=== PATIENT | male | born 1955 | race Caucasian/White ===

== ENCOUNTER 2021-11-06 08:45 | Inpatient (IN) ==
--- NOTE | 2021-11-06 08:57 | Emergency Department Note ---
HPI General Chief complaint: Extremity Injury, Lower Stated complaint: left hip pain/deformity Time Seen by Provider: 11/06/21 08:57 Source: patient and EMS Mode of arrival: EMS Limitations: physical limitation History of Present Illness HPI Narrative: 66-year-old male with past medical history of diabetes presenting with left hip and leg pain. He states 2 days ago he fell in his garage while getting out of a chair and landed on his left side. Denies head injury or LOC. He states since then he has had pain in his left hip and left knee. He has been able to ambulate but it is very painful. No numbness, weakness, paresthesias, headache, or back pain. Not on anticoagulation. No other complaints. Related Data Home Medications Medication Instructions Recorded Confirmed hydrocodone 7.5 mg-acetaminophen 1 tab PO Q4H PRN tab 04/22/15 11/06/21 500 mg tablet insulin glargine 100 unit/mL 5 unit SUB-Q .QAM-QPM ml 04/22/15 11/06/21 subcutaneous solution insulin lispro 100 unit/mL 25 unit SUB-Q QID ml 04/22/15 11/06/21 subcutaneous solution ibuprofen 200 mg tablet 200 mg PO PRN tab 04/18/16 11/06/21 lisinopril 20 mg tablet 40 mg PO QDAY 04/18/16 11/06/21 atorvastatin [Lipitor] 5 mg PO AC 05/20/19 11/06/21 Previous Rx's Medication Instructions Recorded hydrocodone 5 mg-acetaminophen 325 1 tab PO Q4H PRN #20 tab 10/13/21 mg tablet Allergies Allergy/AdvReac Type Severity Reaction Status Date / Time No Known Drug Allergies Allergy Verified 11/06/21 12:43 Review of Systems ROS ROS Narrative: Narrative: Constitutional: Denies fever or chills ENT ED: Denies throat pain Cardiovascular: Denies chest pain or palpitations Respiratory: Denies shortness of breath or cough Gastrointestinal: Denies abdominal pain, nausea or vomiting Genitourinary: Denies dysuria Musculoskeletal: Reports joint pain; Denies back pain Integumentary: Denies rash Neurological: Denies headache, weakness, numbness or paresthesias Psychiatric: Denies anxiety Endocrine: Denies fatigue Hematological/Lymphatic: Denies easy bleeding PFSH Narrative Patient History Narrative: Narrative: Medical/Surgical/Family History All Active Problems (Updated 11/06/21 @ 11:31 by Man Magdaleno MD) Fall (Acute) Multiple fractures of ribs of right side (Acute) Closed fracture of neck of left femur (Acute) History of surgical amputation of finger of left hand (Acute) History of tonsillectomy (Acute) H/O hand surgery (Acute) Tobacco abuse (Acute) Osteoporosis (Acute) Lumbar disc disease (Acute) Diabetes mellitus type 1 (Acute) Medical History (Updated 11/06/21 @ 11:31 by Man Magdaleno MD) Diabetes mellitus type 1 Lumbar disc disease Osteoporosis Tobacco abuse Surgical History H/O hand surgery Right History of surgical amputation of finger of left hand left 5th finger amputated History of tonsillectomy Family History Mother Depression Father Cardiac disease Social History Smoking Status: Current every day smoker Alcohol Intake Frequency: a few times a week Exam Narrative Narrative: Narrative: General Limitations: physical limitation General appearance: Present alert and in no apparent distress Head Head: Present atraumatic and normocephalic Eye Eye: Present normal appearance, PERRL and EOMI; Absent scleral icterus or conjunctival injection ENT ENT: Present mucous membranes moist Neck Neck: Present normal inspection, full ROM and trachea midline; Absent tenderness Chest Chest: Present symmetric chest wall rise Respiratory Respiratory: Present normal lung sounds bilaterally; Absent respiratory distress, wheezes, stridor, accessory muscle use or prolonged expiratory phase Cardiovascular Cardiovascular: Present regular rate and normal rhythm; Absent systolic murmur or diastolic murmur Adbominal Abdominal: Present soft; Absent distention, tenderness, guarding, rebound, rigidity or organomegaly Extremities Extremities: Present other (Tenderness to palpation over the left lateral hip and left anterior knee; mild effusion noted to the left knee; range of motion of the left hip and left knee intact but limited secondary to pain; distal sensation intact, 2+ DP pulses bilaterally); Absent pretibial edema Back Back: Present normal inspection; Absent spinous process tenderness Neurological Neurological: Present alert and oriented X3 Psychiatric Psychiatric: Present normal affect and normal mood Skin Skin: Present warm (WNL) and dry Course Consultations Consultation #1: Dr. Cooper, orthopedics Time: 10:36 Consultation #2: Dr. Sanches, hospitalist Time: 11:00 Vital Signs Vital signs: Vital Signs Temperature 97.5 F 11/06/21 08:47 Pulse Rate 96 H 11/06/21 08:47 Respiratory Rate 20 11/06/21 08:47 Blood Pressure 154/106 11/06/21 08:47 Pulse Oximetry (%) 99 11/06/21 08:47 Temperature 98.3 F 11/06/21 12:27 Pulse Rate 98 H 11/06/21 12:27 Respiratory Rate 22 11/06/21 12:27 Blood Pressure 155/96 11/06/21 12:27 Pulse Oximetry (%) 98 11/06/21 12:27 MDM MDM Narrative Medical decision making narrative: 66-year-old male presenting with left hip and left knee pain after fall. Neurologically intact, no other injuries reported. Will obtain x-rays and reevaluate. X-ray shows a left femoral neck fracture. Vital signs are stable. Patient made NPO. Patient discussed with Dr. Cooper of orthopedics and Dr. Sanches, admitting hospitalist. Lab Data Lab results reviewed: Yes I reviewed the patient's lab results. Result diagrams: 11/06/21 10:03 11/06/21 10:03 Labs: Lab Results 11/06/21 11/06/21 11/06/21 Range/Units 10:03 10:03 10:03 WBC 8.8 (4.5-11.0) K/mcL RBC 4.24 L (4.63-6.08) M/mcL Hgb 14.9 (13.7-17.5) g/dL Hct 41.9 (40.1-51.0) % MCV 98.8 (80.0-100.0) fL MCH 35.1 H (26.0-34.0) pg MCHC 35.6 (31.0-36.0) g/dL RDW 13.2 (11.5-14.5) % Plt Count 217 (140-440) K/mcL MPV 10.8 H (7.4-10.4) fL Neut % (Auto) 72.1 (38.0-78.0) % Lymph % (Auto) 14.1 L (15.5-49.0) % [place] % (Auto) 11.2 (1.0-12.0) % Eos % (Auto) 2.1 (0.0-7.0) % Baso % (Auto) 0.5 (0.0-2.0) % Lymph # (Auto) 1.24 L (1.50-4.80) K/mcL [place] # (Auto) 0.98 H (0.10-0.90) K/mcL Eos # (Auto) 0.18 (0.00-0.70) K/mcL Baso # (Auto) 0.04 (0.00-0.30) K/mcL Absolute Neutrophils 6.34 (1.80-8.00) K/mcL PT 12.0 (11.9-14.5) sec INR 0.9 (0.9-1.1) Sodium 131 L (133-145) mmol/L Potassium 3.8 (3.3-5.1) mmol/L Chloride 94 L (96-108) mmol/L Carbon Dioxide 19 L (22-30) mmol/L Anion Gap 18.0 H (8.0-16.0) BUN 10 (8-23) mg/dL Creatinine 0.5 L (0.7-1.2) mg/dL GFR Calculation 114 Glucose 263 H (70-105) mg/dL Hemoglobin A1c (4.0-6.0) % Hgb Estim Average Glucose mg/dL Calcium 8.6 (8.6-10.4) mg/dL Total Bilirubin 0.7 (0.1-1.0) mg/dL AST 20 (<40) U/L ALT 15 (<40) U/L Alkaline Phosphatase 89 (39-117) U/L Total Protein 6.3 (5.9-8.4) gm/dL Albumin 3.4 (3.2-5.2) gm/dL Globulin 2.9 (2.2-3.7) gm/dL Albumin/Globulin Ratio 1.2 (1.0-2.3) Urine Color Urine Appearance (Clear) Urine pH (5.0-9.0) Ur Specific [place] (1.000-1.035) Urine Protein (Negative) mg/dL Urine Glucose (UA) (Negative) mg/dL Urine Ketones (Negative) mg/dL Urine Occult Blood (Negative) leny/mcL Urine Nitrate (Negative) Urine Bilirubin (Negative) mg/dL Urine Urobilinogen mg/dL Ur Leukocyte Esterase (Negative) /uL Urine RBC (0-3) /hpf Urine WBC (0-4) /hpf Ur Squamous Epith Cells (0-4) /hpf Urine Bacteria (0) /hpf Hyaline Casts (0-2) /lph Urine Mucus (None) /hpf Ur Culture Indicated? 11/06/21 11/06/21 Range/Units 10:03 12:00 WBC (4.5-11.0) K/mcL RBC (4.63-6.08) M/mcL Hgb (13.7-17.5) g/dL Hct (40.1-51.0) % MCV (80.0-100.0) fL MCH (26.0-34.0) pg MCHC (31.0-36.0) g/dL RDW (11.5-14.5) % Plt Count (140-440) K/mcL MPV (7.4-10.4) fL Neut % (Auto) (38.0-78.0) % Lymph % (Auto) (15.5-49.0) % [place] % (Auto) (1.0-12.0) % Eos % (Auto) (0.0-7.0) % Baso % (Auto) (0.0-2.0) % Lymph # (Auto) (1.50-4.80) K/mcL [place] # (Auto) (0.10-0.90) K/mcL Eos # (Auto) (0.00-0.70) K/mcL Baso # (Auto) (0.00-0.30) K/mcL Absolute Neutrophils (1.80-8.00) K/mcL PT (11.9-14.5) sec INR (0.9-1.1) Sodium (133-145) mmol/L Potassium (3.3-5.1) mmol/L Chloride (96-108) mmol/L Carbon Dioxide (22-30) mmol/L Anion Gap (8.0-16.0) BUN (8-23) mg/dL Creatinine (0.7-1.2) mg/dL GFR Calculation Glucose (70-105) mg/dL Hemoglobin A1c 5.9 (4.0-6.0) % Hgb Estim Average Glucose 123 mg/dL Calcium (8.6-10.4) mg/dL Total Bilirubin (0.1-1.0) mg/dL AST (<40) U/L ALT (<40) U/L Alkaline Phosphatase (39-117) U/L Total Protein (5.9-8.4) gm/dL Albumin (3.2-5.2) gm/dL Globulin (2.2-3.7) gm/dL Albumin/Globulin Ratio (1.0-2.3) Urine Color Yellow Urine Appearance Clear (Clear) Urine pH 5.5 (5.0-9.0) Ur Specific [place] >= 1.030 (1.000-1.035) Urine Protein Trace A (Negative) mg/dL Urine Glucose (UA) 250 mg/dl A (Negative) mg/dL Urine Ketones >=160 mg/dl A (Negative) mg/dL Urine Occult Blood Trace-lysed A (Negative) leny/mcL Urine Nitrate Negative (Negative) Urine Bilirubin Negative (Negative) mg/dL Urine Urobilinogen Normal mg/dL Ur Leukocyte Esterase Negative (Negative) /uL Urine RBC 1 (0-3) /hpf Urine WBC 5 H (0-4) /hpf Ur Squamous Epith Cells 0 (0-4) /hpf Urine Bacteria None (0) /hpf Hyaline Casts 7 H (0-2) /lph Urine Mucus Mod A (None) /hpf Ur Culture Indicated? No ED POC Tests ED POC Tests: MANUEL - SARS Antigen Negative Radiology Data Radiology results reviewed: Yes I reviewed the patient's radiology results. Radiology results narrative: Ordering Physician:Man Magdaleno M.D. Date of Service:11/06/21 Procedure(s):XR chest 1V portable HISTORY: Fell, left hip fracture FINDINGS: The lungs are clear and well expanded. The heart size, pulmonary vasculature, mediastinum and baljit are normal. An old healed fracture is present posteriorly in the left eighth rib. No acute fracture is detected. IMPRESSION: Normal chest Interpreted and Authenticated by: Jens Zhang 11/06/21 2 2 [place] [place] Manager: <Electronically signed by Jens Zhang M.D. in OV> 11/06/21953 Ordering Physician:Man Magdaleno M.D. Date of Service:11/06/21 Procedure(s):XR knee LT 3V HISTORY: Fell with left knee injury FINDINGS: There are multiple overlying artifacts on the AP and oblique images. There is no evidence of fracture or dislocation. Medial joint compartment is slightly narrowed but there is no spur formation. No joint effusion is present. Moderate amount of calcified plaque is present in the popliteal artery. IMPRESSION: No fracture Interpreted and Authenticated by: Jens Zhang 11/06/21 Ordering Physician:Man Magdaleno M.D. Date of Service:11/06/21 Procedure(s):XR hip LT comp 2VW HISTORY: Fell with left hip injury Findings: there is an acute transverse fracture through the femoral neck. The shaft of the femur is retracted proximally 8 mm. There is no significant impaction or angulation. The hip joint space is normal in width and alignment and there is no underlying arthritis. The right hip is normal. No pelvic fracture is present. Moderate atherosclerotic disease is present throughout the pelvis and the upper thighs. Impression: Acute left femoral neck fracture Interpreted and Authenticated by: Jens Zhang 11/06/21 EKG Data EKG #1: EKG attestation: Yes I reviewed and interpreted this EKG. and Yes There are no EKG findings of acute coronary syndrome EKG results narrative: Normal sinus rhythm at 87 bpm. Low voltage noted. No ST elevation or depression. Interpretation: no acute changes Discharge Plan Patient/Caregiver Discharge Instructions Pt seen by [facility]NER/PA only: No Clinical Impression: Closed fracture of neck of left femur Patient Disposition: Xfer As Inpt ([facility]) Condition: Fair Discharge Date/Time: 11/06/21 12:15
--- NOTE | 2021-11-06 09:53 | XRay Report ---
HISTORY: Fell with left hip injury Findings: there is an acute transverse fracture through the femoral neck. The shaft of the femur is retracted proximally 8 mm. There is no significant impaction or angulation. The hip joint space is normal in width and alignment and there is no underlying arthritis. The right hip is normal. No pelvic fracture is present. Moderate atherosclerotic disease is present throughout the pelvis and the upper thighs. Impression: Acute left femoral neck fracture Interpreted and Authenticated by: Jens Zhang 11/06/21
--- NOTE | 2021-11-06 09:55 | XRay Report ---
HISTORY: Fell with left knee injury FINDINGS: There are multiple overlying artifacts on the AP and oblique images. There is no evidence of fracture or dislocation. Medial joint compartment is slightly narrowed but there is no spur formation. No joint effusion is present. Moderate amount of calcified plaque is present in the popliteal artery. IMPRESSION: No fracture Interpreted and Authenticated by: Jens Zhang 11/06/21
--- NOTE | 2021-11-06 09:58 | XRay Report ---
HISTORY: Fell, left hip fracture FINDINGS: The lungs are clear and well expanded. The heart size, pulmonary vasculature, mediastinum and baljit are normal. An old healed fracture is present posteriorly in the left eighth rib. No acute fracture is detected. IMPRESSION: Normal chest Interpreted and Authenticated by: Jens Zhang 11/06/21
[2021-11-06] MEDS ORDERED: morphine 4 MG/ML VIAL IV ONE ×2 (10:24→11:11)
[2021-11-06 10:39] LABS: Basophils # (Auto) 0.04 K/mcL (0.00-0.30); Basophils % (Auto) 0.5 % (0.0-2.0); Eosinophils # (Auto) 0.18 K/mcL (0.00-0.70); Eosinophils % (Auto) 2.1 % (0.0-7.0); Hematocrit 41.9 % (40.1-51.0); Hemoglobin 14.9 g/dL (13.7-17.5); Lymphocytes # (Auto) 1.24 K/mcL (1.50-4.80); Lymphocytes % (Auto) 14.1 % (15.5-49.0); Mean Cell Volume 98.8 fL (80.0-100.0); Mean Corpuscular HGB Conc 35.6 g/dL (31.0-36.0); Mean Platelet Volume 10.8 fL (7.4-10.4); Monocytes # (Auto) 0.98 K/mcL (0.10-0.90); Monocytes % (Auto) 11.2 % (1.0-12.0); Neutrophils % (Auto) 72.1 % (38.0-78.0); Platelet Count 217 K/mcL (140-440); RBC 4.24 M/mcL (4.63-6.08); Red Cell Distribution Width 13.2 % (11.5-14.5); WBC 8.8 K/mcL (4.5-11.0)
[2021-11-06 10:57] LABS: ALT/SGPT 15 U/L (<40); AST/SGOT 20 U/L (<40); Albumin 3.4 gm/dL (3.2-5.2); Albumin/Globulin Ratio 1.2 (1.0-2.3); Alkaline Phosphatase 89 U/L (39-117); Bilirubin,Total 0.7 mg/dL (0.1-1.0); Blood Urea Nitrogen 10 mg/dL (8-23); Calcium 8.6 mg/dL (8.6-10.4); Carbon Dioxide 19 mmol/L (22-30); Chloride 94 mmol/L (96-108); Globulin 2.9 gm/dL (2.2-3.7); Glomerular Filtration Rate 114; Glucose 263 mg/dL (70-105)
--- NOTE | 2021-11-06 11:15 | Internal Med History&Physical ---
HPI History of Present Illness Patient information: Note initiated : 11/06/21 at 11:12 am Service Date, if different from initiated Date: [] Patient: Mike Pink a 66 y/o M admitted on for left hip pain/deformity. Chief Complaint: [] History of present illness: Mr. Pink is a 66 year old M Who fell in his garage several days ago and been walking on it with pain that feels like he made it worse today. No other pains or complaints. Has a chronic cough. Work-up in the ED revealed left hip fracture Dr. Cooper was contacted orthopedic surgery. Review of Systems: Pertinent positive as above. Denies headache/fever/chills/nausea/vomiting/chest or abdominal pain/cough/dyspnea/diarrhea. Main 10 point review of system reviewed negative PFSH PFSH All Active Problems Fall (Acute) Multiple fractures of ribs of right side (Acute) History of surgical amputation of finger of left hand (Acute) History of tonsillectomy (Acute) H/O hand surgery (Acute) Tobacco abuse (Acute) Osteoporosis (Acute) Lumbar disc disease (Acute) Diabetes mellitus type 1 (Acute) Medical History Diabetes mellitus type 1 Lumbar disc disease Osteoporosis Tobacco abuse Surgical History H/O hand surgery Right History of surgical amputation of finger of left hand left 5th finger amputated History of tonsillectomy Family History Mother Depression Father Cardiac disease Social History (Updated 05/20/19 @ 10:57 by Daryl Nick MD) marital status: alcohol intake frequency: a few times a week MEDS/ALLERGIES Home Medications and Allergies Home Medications Medication Instructions Recorded Confirmed Type hydrocodone 7.5 mg-acetaminophen 1 tab PO Q4H PRN tab 04/22/15 11/06/21 History 500 mg tablet insulin glargine 100 unit/mL 5 unit SUB-Q .QAM-QPM ml 04/22/15 11/06/21 History subcutaneous solution insulin lispro 100 unit/mL 25 unit SUB-Q QID ml 04/22/15 11/06/21 History subcutaneous solution insulin syringe-needle U-100 0.3 04/22/15 05/20/19 History mL 31 gauge x /" ibuprofen 200 mg tablet 200 mg PO PRN tab 04/18/16 11/06/21 History lisinopril 20 mg tablet 40 mg PO QDAY 04/18/16 11/06/21 History atorvastatin [Lipitor] PO 05/20/19 05/20/19 History hydrocodone 5 mg-acetaminophen 325 1 tab PO Q4H PRN #20 tab 10/13/21 11/06/21 Rx mg tablet Allergies Allergy/AdvReac Type Severity Reaction Status Date / Time No Known Drug Allergies Allergy Verified 11/06/21 08:55 EXAM Constitutional Vitals: Temp Pulse Resp BP Pulse Ox 97.5 F 95 H 20 159/97 99 11/06/21 08:47 11/06/21 10:31 11/06/21 08:47 11/06/21 10:31 11/06/21 10:31 Exam: General: Alert, Awake, No acute Distress Eyes/N/T: EOMI, PERRL, dryMM Head/Neck: neck supple, normocephalic atraumatic CV: RRR, No murmurs, normal s1/s2 Pulm: Clear b/l, no wheezing/rhonchi/rales Abd: soft, nontender, +BS x4 Ext: no clubbing/cyanosis/edema Neuro: Alert, no focal deficits, moves all extremities, CN 2-12 grossly intact, sensations intact b/l upper/lower Skin: warm/dry DATA Data Completed and Pending Labs: Labs from last 24 hours 11/06/21 11/06/21 10:03 10:03 WBC 8.8 RBC 4.24 L Hgb 14.9 Hct 41.9 MCV 98.8 MCH 35.1 H MCHC 35.6 RDW 13.2 Plt Count 217 MPV 10.8 H Neut % (Auto) 72.1 Lymph % (Auto) 14.1 L [place] % (Auto) 11.2 Eos % (Auto) 2.1 Baso % (Auto) 0.5 Lymph # (Auto) 1.24 L [place] # (Auto) 0.98 H Eos # (Auto) 0.18 Baso # (Auto) 0.04 Absolute Neutrophils 6.34 Sodium 131 L Potassium 3.8 Chloride 94 L Carbon Dioxide 19 L Anion Gap 18.0 H BUN 10 Creatinine 0.5 L GFR Calculation 114 Glucose 263 H Calcium 8.6 Total Bilirubin 0.7 AST 20 ALT 15 Alkaline Phosphatase 89 Total Protein 6.3 Albumin 3.4 Globulin 2.9 Albumin/Globulin Ratio 1.2 A/P Narrative A/P Narrative: A: *Left hip fracture: *DM w/hyperglycemia: -A1c *HTN: *Hyponatremia/hypochloremia: *Volume depletion: P: -We have if orthopedic surgery -Pain control -IVF -Basal and SSI -Continue home lisinopril -PT/OT -ppx: SCD, postop per Ortho Full code Time Spent With Patient Time: Total time spent is greater than 50% in coordination of care (as documented) at patient's floor/unit and/or counseling patient:
[2021-11-06] MEDS ORDERED: POTASSIUM CHLORIDE 20 MEQ TABLET PO PRN ×2 (12:25)
[2021-11-06] MEDS ORDERED: 0.9 % SODIUM CHLORIDE 1,500 ML IV SCH (12:25)
[2021-11-06] MEDS ORDERED: ACETAMINOPHEN 325 MG TABLET PO PRN (12:25)
[2021-11-06] MEDS ORDERED: IPRATROPIUM/ALBUTEROL 3 ML AMPUL.NEB NEB PRN ×2 (12:25→21:56)
[2021-11-06] MEDS ORDERED: SENNOSIDES 1 TABLET PO PRN (12:25)
[2021-11-06] MEDS ORDERED: HYDROCODONE ACETAMINOPHEN PO PRN (12:25)
[2021-11-06] MEDS ORDERED: DEXTROSE 50% 50 ML VIAL IV PRN (12:25)
[2021-11-06] MEDS ORDERED: POTASSIUM CHLORIDE 40 MEQ in DEXTROSE 5% IN WATER 500 ML IV PRN (12:25)
[2021-11-06] MEDS ORDERED: DEXTROSE 31 GM ORAL.SUSP PO PRN (12:25)
[2021-11-06] MEDS ORDERED: MAGNESIUM SULFATE 2 GM/50 ML BAG IV PRN (12:25)
[2021-11-06] MEDS ORDERED: POLYETHYLENE GLYCOL 3350 17 GM PACKET PO PRN (12:25)
[2021-11-06 12:28] LABS: INR 0.9 (0.9-1.1)
[2021-11-06] MEDS ORDERED: IBUPROFEN 200 MG TABLET PO PRN (12:29)
[2021-11-06] MEDS ORDERED: HYDROCODONE/APAP 7.5/325MG TABLET PO PRN (12:30)
[2021-11-06] MEDS: INSULIN LISPRO 1 UNIT/0.01 ML UNIT SQ SCH ×4 (13:07→23:04)
[2021-11-06] MEDS: morphine 4 MG/ML VIAL IV PRN ×2 (13:08→16:19)
[2021-11-06 13:38] LABS: Hemoglobin A1C 5.9 % Hgb (4.0-6.0)
[2021-11-06] MEDS: 0.9 % SODIUM CHLORIDE 10 ML SYRINGE IV SCH ×2 (14:11→22:27)
--- NOTE | 2021-11-06 14:40 | EKG ---
[facility] Test Date: 2021-11-06 Pat Name: Mike Pink Department: ED Room: Gender: Male Inventory Checker: zack : 1955 Requested By: Man Magdaleno Order Number: [id number] Reading MD: Jeremy Zhang M.D. Measurements Intervals Elliott Rate: 87 P: 74 UT: 162 QRS: 60 QRSD: 89 T: 62 QT: 400 QTc: 482 Interpretive Statements Sinus rhythm Low voltage, extremity leads Borderline prolonged QT interval Electronically Signed On 11-06-2021 14:40:14 PST by Jeremy Zhang M.D. /store/M0/[id number].pdf
[2021-11-06 14:47] LABS: Appearance,Urine Clear (Clear); Bilirubin,Urine Negative (Negative); Color,Urine Yellow; Culture Indicated,Urine No; Ketones,Urine >=160 mg/dL mg/dL (Negative); Leukocyte Esterase,Urine Negative /uL (Negative); Mucus,Urine MOD /hpf; Nitrate,Urine Negative (Negative); PH,Urine 5.5 (5.0-9.0); Protein,Urine Trace mg/dL (Negative); Specific Gravity,Urine >= 1.030 (1.000-1.035); Urine Blood Trace-lysed ery/mcL (Negative); Urine Hyaline Cast 7 /lph (0-2); Urine RBC 1 /hpf (0-3); Urine Squamous Epithelial Cell 0 /hpf (0-4); Urine WBC 5 /hpf (0-4); Urobilinogen,Urine Normal
[2021-11-06] MEDS ORDERED: ceFAZolin 2 GM in DEXTROSE 5% IN WATER 50 ML IV SCH (15:30)
[2021-11-06] MEDS ORDERED: METHOCARBAMOL 1,000 MG/10 ML VIAL IV PRN ×2 (16:05→21:56)
[2021-11-06] MEDS ORDERED: PHENYLephrine 1 MG/10 ML SYRINGE (ANEST) ONE (19:14)
[2021-11-06] MEDS ORDERED: ROPIVACAINE HCL/PF 20 ML VIAL IJ ONE (19:14)
[2021-11-06] MEDS ORDERED: MIDAZOLAM 2 MG/2 ML VIAL ONE (19:14)
[2021-11-06] MEDS ORDERED: fentaNYL 100 MCG/2 ML VIAL IV ONE (19:14)
[2021-11-06] MEDS ORDERED: LIDOCAINE HCL/PF 100 MG/5 ML SYRINGE IV ONE (19:14)
[2021-11-06] MEDS ORDERED: GLYCOPYRROLATE 0.2 MG/ML VIAL IV ONE (19:14)
[2021-11-06] MEDS ORDERED: MAGNESIUM SULFATE 2 GM/50 ML BAG IV ONE (19:14)
[2021-11-06] MEDS ORDERED: PROPOFOL 200 MG/20 ML VIAL IV ONE (19:14)
[2021-11-06] MEDS ORDERED: KETAMINE 50 MG/ML Syringe (ANEST) IV ONE (19:14)
[2021-11-06] MEDS ORDERED: DEXAMETHASONE 10 MG/ML VIAL ONE (19:14)
[2021-11-06] MEDS ORDERED: TRANEXAMIC ACID 1,000 MG/10 ML VIAL ONE (19:14)
[2021-11-06] MEDS ORDERED: ONDANSETRON 4 MG/2 ML VIAL ONE (19:14)
--- NOTE | 2021-11-06 20:43 | History and Physical Report ---
DATE OF ADMISSION: 11/06/2021 CHIEF COMPLAINT: Left hip pain. HISTORY OF PRESENT ILLNESS: The patient is a 66-year-old male, who on Saturday reports fell in garage resulting in pain in his hip; however, he was able to ambulate minimally. However, this morning he had significant increase of pain, he felt a pop, and unable to ambulate. He was brought to the emergency department for further evaluation and treatment via EMS. He was found to have a femoral neck fracture. On presentation, he only complains of left hip pain and inability to ambulate. He denies any paraesthesias or other concerns that he has. PAST MEDICAL HISTORY: Significant for history of diabetes type 1 with hemoglobin A1c of 7 or less for the last several years. He does use tobacco, but stopped about a week ago. PAST SURGICAL HISTORY: Right hand surgery for amputation of left small finger. He has had tonsillectomy. ALLERGIES: No known drug allergies. MEDICATIONS: Insulin, lisinopril, Lipitor. SOCIAL HISTORY: He resides by himself, but has family close by and they reside locally. As mentioned above, he has stopped tobacco use approximately 1 week ago, but has been using tobacco up to that point. . REVIEW OF SYSTEMS: Other than that mentioned in the HPI, the 10-point review of systems negative. PHYSICAL EXAMINATION: VITAL SIGNS: He is afebrile. Temp of 98.3, heart rate in the 90s, blood pressure 155/106, O2 sat 98% on room air. GENERAL: He is alert, oriented, interactive, and appropriate. EXTREMITIES: Exam reveal isolated injury to his left lower extremity. He has normal rotation of the hip itself. It does not appear externally rotated or significantly shortened. Range of motion deferred about the hip given the known fracture. Also, no joint effusion about the knee itself. He does have some vascular changes about the leg portion of his lower extremities itself with some discoloration throughout, but the foot is warm and well perfused, and the patient is grossly intact throughout. IMAGING: He has plain radiographs demonstrating a displaced femoral neck fracture on left side. LABORATORY DATA: His A1c today is of 5.9. Sodium is 131, creatinine is 0.5, glucose 263. CBC of 8.8 white count and H and H is 14.9/41.9. UA appears to be negative for any UTI. ASSESSMENT AND PLAN: This is a 66-year-old male with diabetes and history of smoking with a left displaced femoral neck fracture. I discussed the diagnosis with him and treatment options. Given the displaced nature, I do think either a royal or total hip arthroplasty would be of best interest. There is risk associated with both. With the royal, he has a lower dislocation rate; but likely given his age and level of function, will potentially need a revision to total hip. I discussed the total hip arthroplasty which also is an option, but can lead to a bit higher rate of hip dislocation. Both can can be associated with leg length discrepancy and rotation deformity. I discussed all these with him, he understands. He is okay to proceed with surgery. After further discussion on how to proceed, he wants to proceed with total hip arthroplasty, which I think is the best option for him. Discussed what this entails and typically I will do this in the anterior approach. He understands and questions were answered. He does have a baseline increased risk of postoperative complication of the wound healing and infection secondary to diabetes and smoking history. However, these are minimized as his A1c is less than 6, and the smoking is non-mitigable risk factor at this point. Otherwise, he will be admitted, nonweightbearing with the surgical plan for later on today. DLW:carl Job ID: [id number] Doc ID: [id number] MD MALGORZATA Monae
[2021-11-06] MEDS ORDERED: VANCOMYCIN 1 GM VIAL TOPICAL SCH (21:15)
--- NOTE | 2021-11-06 21:16 | Brief Operative Note ---
Brief Operative Note Date of procedure: 11/06/21 Pre-op diagnosis: left displaced femoral neck fracture Post-op diagnosis: same Procedure: left anterior total hip arthroplasty Grafts/Implants: Yes Anesthesia: GETA and spinal Findings: mild underlying arthritis, displaced femoral neck fracture Complications: none Surgeon: Monty Cooper Compressor Repairer: Adal Martines Estimated blood loss (cc): 100 Tourniquet Time (Minutes): 0 Specimens Removed/Pathology: none sent Condition: stable Disposition: PACU
[2021-11-06] MEDS ORDERED: METHOCARBAMOL 750 MG TABLET PO PRN (21:19)
[2021-11-06] MEDS ORDERED: BENZOCAINE/MENTHOL 1 LOZENGE PO PRN ×2 (21:19→21:56)
[2021-11-06] MEDS ORDERED: TRANEXAMIC ACID 1,000 MG/10 ML VIAL IV ONE (21:19)
[2021-11-06] MEDS ORDERED: KETOROLAC 30 MG/ML VIAL IV PRN (21:23)
[2021-11-06] MEDS ORDERED: LACTATED RINGERS 1,000 ML IV SCH ×2 (21:30→22:00)
[2021-11-06] MEDS ORDERED: NALOXONE HCL 0.4 MG/ML VIAL IV PRN (21:56)
[2021-11-06] MEDS ORDERED: FLUMAZENIL 0.1 MG/ML ML IV PRN (21:56)
[2021-11-06] MEDS ORDERED: ACETAMINOPHEN 1,000 MG/100 ML BAG IV ONE (21:56)
[2021-11-06] MEDS ORDERED: LACTATED RINGERS 250 ML IV PRN (21:56)
[2021-11-06] MEDS ORDERED: ONDANSETRON 4 MG/2 ML VIAL IV PRN (21:56)
[2021-11-06] MEDS ORDERED: fentaNYL 100 MCG/2 ML VIAL IV PRN (21:56)
[2021-11-06] MEDS: INSULIN GLARGINE, HUMAN 1 UNIT/0.01 ML SQ SCH ×2 (22:26→23:05)
[2021-11-06] MEDS ORDERED: ceFAZolin 1 GM VIAL ONE ×2 (22:42→22:44)
[2021-11-06] MEDS: ceFAZolin 1 GM VIAL IV SCH (22:45)
[2021-11-06] MEDS: ACETAMINOPHEN 500 MG TABLET PO SCH (22:46)
[2021-11-06] MEDS: DOCUSATE SODIUM 100 MG CAPSULE PO SCH (22:47)
[2021-11-06] MEDS: ACETAMINOPHEN 1,000 MG/100 ML BAG IV SCH (22:49)
[2021-11-07] MEDS: ACETAMINOPHEN 1,000 MG/100 ML BAG IV SCH ×4 (05:14→21:17)
[2021-11-07] MEDS: ACETAMINOPHEN 500 MG TABLET PO SCH ×3 (05:14→21:09)
[2021-11-07] MEDS: ceFAZolin 1 GM VIAL IV SCH (05:17)
[2021-11-07] MEDS: 0.9 % SODIUM CHLORIDE 10 ML SYRINGE IV SCH ×3 (05:29→21:10)
[2021-11-07] MEDS: INSULIN LISPRO 1 UNIT/0.01 ML UNIT SQ SCH ×6 (06:02→23:42)
--- NOTE | 2021-11-07 06:24 | Orthopedic Progress Note ---
SUBJECTIVE Subjective Patient information: Note initiated : 11/07/21 at 6:17 am Service Date, if different from initiated Date: [] Patient: Mike Pink 66 y/o M admitted on 11/06/21 for left hip pain/deformity. Chief Complaint: [no acute events overnight. pain controlled. Does have a bit of nausea at times. No shortness of breath] Constitutional Vitals: Vital Signs Temp Pulse Resp BP Pulse Ox 97 F 99 H 17 123/76 97 11/07/21 03:51 11/07/21 03:51 11/07/21 03:51 11/07/21 03:51 11/07/21 03:51 Period Temp Pulse Resp BP Sys/Valle Pulse Ox Last 24 Hr 97 F-99.2 F 91-122 14-22 111-173/61-106 97-100 Intake and Output 11/06/21 11/07/21 11/07/21 21:59 05:59 13:59 Intake Total 2450 4000 Output Total 450 1125 Balance 1999 2875 Weight 154 lb 1.6 oz Intake & Output: Intake & Output 11/06/21 11/07/21 11/07/21 21:59 05:59 13:59 Intake Total 2450 4000 Output Total 450 1125 Balance 2000 2875 Weight 154 lb 1.6 oz Intake: IV 50 1600 Sodium Chloride 0.9% 1,500 ml @ 1500 150 mls/hr IV .Q10H [facility] Rx#: [id number] Ancef 2 gm In Dextrose 5% in 50 Water 50 ml @ 100 mls/hr IV PREOP [facility] Rx#:[id number] Oral 200 IV - Manual Only 2400 2200 Output: Urine Catheter Amount 450 1025 Estimated Blood Loss 100 Other: Meal Tuna salad/crackers Percent of Meal Consumed 100% Feeding Ability Independent Urine Appearance Clear Clear Urine Color Dark Yellow Bright Yellow Urine Odor Normal Additional findings Additional findings: general: alert and oriented appropriate left hip: dry dressing in place without strikethrough. foot warm well perfused, sensation to light touch grossly intact, able to perform straight leg raise, move ankle up and down. OBJ DATA Labs CBC & Chem 7: 11/06/21 10:03 11/06/21 10:03 Labs: Abnormal Lab Results 11/06/21 11/06/21 11/06/21 12:00 10:03 10:03 RBC 4.24 L MCH 35.1 H MPV 10.8 H Lymph % (Auto) 14.1 L Lymph # (Auto) 1.24 L [place] # (Auto) 0.98 H Sodium 131 L Chloride 94 L Carbon Dioxide 19 L Anion Gap 18.0 H Creatinine 0.5 L Glucose 263 H Urine Protein Trace A Urine Glucose (UA) 250 mg/dl A Urine Ketones >=160 mg/dl A Urine Occult Blood Trace-lysed A Urine WBC 5 H Hyaline Casts 7 H Urine Mucus Mod A Meds: Medications Acetaminophen (Acetaminophen 325 Mg Tablet) 650 mg PO Q6HP PRN; Protocol PRN Reason: Per Pain Protocol/Fever > 101 Acetaminophen (Acetaminophen 500 Mg Tablet) 1,000 mg PO Q8 [facility]; Protocol Last Admin: 11/07/21 05:14 Dose: Not Given Documented by: Hydrocodone Bitart/Acetaminophen (Hydrocodone/Apap 7.5/325mg Tablet) 1 tab PO Q4HP PRN; Protocol PRN Reason: Per Pain Protocol Last Admin: 11/07/21 03:57 Dose: 1 tab Documented by: Albuterol/Ipratropium (Ipratropium/Albuterol 3 Ml Ampul.Neb) 3 ml NEB Q4HP PRN PRN Reason: Shortness Of Breath Dextrose (Dextrose 50% 50 Ml Vial) 0 ml IV UD PRN PRN Reason: Hypoglycemia Diagnostic Test (Pha) (Accu-Chek 1 Each Strip) 1 each FS ACHS [facility] Last Admin: 11/07/21 06:02 Dose: 1 each Documented by: Docusate Sodium (Docusate Sodium 100 Mg Capsule) 100 mg PO BID [facility] Last Admin: 11/06/21 22:47 Dose: 100 mg Documented by: Enoxaparin Sodium (Enoxaparin 40 Mg/0.4 Ml Syringe) 40 mg SQ DAILY [facility] Glucose (Dextrose 31 Gm Oral.Susp) 15 gm PO PRN PRN PRN Reason: Hypoglycemia Potassium Chloride 40 meq/ (Dextrose) 520 mls @ 130 mls/hr IV UD PRN PRN Reason: Potassium < 3 Magnesium Sulfate (Magnesium Sulfate) 2 gm in 50 mls @ 50 mls/hr IV UD PRN PRN Reason: Magnesium </= 1.6 Acetaminophen (Ofirmev) 1,000 mg in 100 mls @ 200 mls/hr IV Q8 [facility]; Protocol Last Admin: 11/07/21 05:23 Dose: 100 mls/hr Documented by: Lactated Ringer's (Lactated Ringers) 1,000 mls @ 75 mls/hr IV .[id number] [facility] Last Admin: 11/06/21 22:46 Dose: Not Given Documented by: Ibuprofen (Ibuprofen 200 Mg Tablet) 200 mg PO DAILYP PRN PRN Reason: Pain Insulin Glargine (Insulin Glargine, Human 1 Unit/0.01 Ml) 5 unit SQ BID [facility] Last Admin: 11/06/21 23:05 Dose: 5 units Documented by: Insulin Human Lispro (Insulin Lispro 1 Unit/0.01 Ml Unit) 0 unit SQ [facility]; Protocol Last Admin: 11/07/21 06:02 Dose: 10 units Documented by: Ketorolac Tromethamine (Ketorolac 30 Mg/Ml Vial) 15 mg IV Q6HP PRN PRN Reason: Pain Stop: 11/08/21 21:24 Lisinopril (Lisinopril 20 Mg Tablet) 40 mg PO QDAY [facility] Methocarbamol (Methocarbamol 1,000 Mg/10 Ml Vial) 750 mg IV Q6HP PRN PRN Reason: Muscle Spasm Methocarbamol (Methocarbamol 750 Mg Tablet) 500 mg PO Q6HP PRN PRN Reason: Muscle Spasm Ondansetron HCl (Ondansetron 4 Mg/2 Ml Vial) 4 mg IV Q4HP PRN PRN Reason: Nausea And Vomiting Oxycodone HCl (Oxycodone Hcl 5 Mg Tablet) 5 - 10 mg PO Q4HP PRN; Protocol PRN Reason: Per Pain Protocol Polyethylene Glycol (Polyethylene Glycol 3350 17 Gm Packet) 17 gm PO DAILYP PRN PRN Reason: Constipation Potassium Chloride (Potassium Chloride 20 Meq Tablet) 40 meq PO UD PRN PRN Reason: Potssium is 3-3.5 Potassium Chloride (Potassium Chloride 20 Meq Tablet) 40 meq PO UD PRN PRN Reason: Potassium < 3 Senna (Sennosides 1 Tablet) 2 tab PO DAILYP PRN PRN Reason: Constipation Sodium Chloride (0.9 % Sodium Chloride 10 Ml Syringe) 10 ml IV Q8 [facility] Last Admin: 11/07/21 05:29 Dose: 10 ml Documented by: Throat Lozenges (Benzocaine/Menthol 1 Lozenge) 1 lozenge PO PRN PRN PRN Reason: Sore Throat Vancomycin HCl (Vancomycin 1 Gm Vial) 1 gm TOPICAL ONCE [facility]; Protocol Last Admin: 11/06/21 21:07 Dose: 1 gm Documented by: A/P Assessment and plan (1) Closed fracture of neck of left femur: Assessment and plan: POD 1 s/p left anterior total hip arthroplasty for displaced femoral neck fracture -- weight bearing as tolerated- PT/OT today -- d/c salvador this AM -- Transition to oral pain medications today -- diabetic diet- glucose a bit high on sliding scale -- Tachycardia- reviewed chart which has history of tachy with ER visit in Dec timeframe but reports at home typically in the 80's. -- Prophy: lovenox, IS, foot pumps, mobilization -- Dispo: pending. will see how he does with therapy. Lives alone, did place consult for case management Status: Acute Time Spent With Patient Time: Total time spent is greater than 50% in coordination of care (as documented) at patient's floor/unit and/or counseling patient:
[2021-11-07 07:42] LABS: Basophils # (Auto) 0.01 K/mcL (0.00-0.30); Basophils % (Auto) 0.1 % (0.0-2.0); Eosinophils # (Auto) 0 K/mcL (0.00-0.70); Eosinophils % (Auto) 0 % (0.0-7.0); Hematocrit 36.6 % (40.1-51.0); Hemoglobin 12.9 g/dL (13.7-17.5); Lymphocytes # (Auto) 0.62 K/mcL (1.50-4.80); Lymphocytes % (Auto) 5.6 % (15.5-49.0); Mean Cell Volume 101.4 fL (80.0-100.0); Mean Corpuscular HGB Conc 35.2 g/dL (31.0-36.0); Mean Platelet Volume 10.7 fL (7.4-10.4); Monocytes # (Auto) 0.53 K/mcL (0.10-0.90); Monocytes % (Auto) 4.8 % (1.0-12.0); Neutrophils % (Auto) 89.5 % (38.0-78.0); Platelet Count 239 K/mcL (140-440); RBC 3.61 M/mcL (4.63-6.08); Red Cell Distribution Width 13.2 % (11.5-14.5)
--- NOTE | 2021-11-07 07:55 | Internal Med Progress Note ---
SUBJECTIVE Subjective Patient information: Note initiated : 11/07/21 at 7:52 am Service Date, if different from initiated Date: [] Patient: Mike Pink a 66 y/o M admitted on 11/06/21 for left hip pain/deformity. Chief Complaint: [] Interval history: Chief Complaint: [] History of present illness: Mr. Pink is a 66 year old M Who fell in his garage several days ago and been walking on it with pain that feels like he made it worse today. No other pains or complaints. Has a chronic cough. Work-up in the ED revealed left hip fracture Dr. Cooper was contacted orthopedic surgery. 11/07 No new complaints overnight events. Patient status post ORIF. Review of Systems: denies headache/fever/chills/nausea/vomiting/chest or abdominal pain /cough/dyspnea/diarrhea. Otherwise see above. Constitutional Vitals: Vital Signs Temp Pulse Resp BP Pulse Ox 97 F 99 H 17 123/76 97 11/07/21 03:51 11/07/21 03:51 11/07/21 03:51 11/07/21 03:51 11/07/21 03:51 Period Temp Pulse Resp BP Sys/Valle Pulse Ox Last 24 Hr 97 F-99.2 F 91-122 14-22 111-173/61-106 97-100 Intake and Output 11/06/21 11/07/21 11/07/21 21:59 05:59 13:59 Intake Total 2450 4000 100 Output Total 450 1125 Balance 2000 2875 100 Weight 69.899 kg Intake & Output: Intake & Output 11/06/21 11/07/21 11/07/21 21:59 05:59 13:59 Intake Total 2450 4000 100 Output Total 450 1125 Balance 2000 2875 100 Weight 69.899 kg Intake: IV 50 1600 100 Sodium Chloride 0.9% 1,500 ml @ 1500 150 mls/hr IV .Q10H [facility] Rx#: [id number] Ancef 2 gm In Dextrose 5% in 50 Water 50 ml @ 100 mls/hr IV PREOP [facility] Rx#:[id number] Oral 200 IV - Manual Only 2400 2200 Output: Urine Catheter Amount 450 1025 Estimated Blood Loss 100 Other: Meal Tuna salad/crackers Percent of Meal Consumed 100% Feeding Ability Independent Urine Appearance Clear Clear Uretheral (Song) Clear Urine Color Dark Yellow Bright Yellow Uretheral (Song) Pale Urine Odor Normal Exam: General: Alert, Awake, No acute Distress Eyes/N/T: EOMI, Head/Neck: neck supple, CV: RRR, No murmurs, Pulm: Clear b/l, no wheezing/rhonchi/rales Abd: soft, nontender, +BS x4 Ext: no clubbing/cyanosis/edema Neuro: Alert, no focal deficits, moves all extremities, OBJ DATA Labs CBC & Chem 7: 11/07/21 05:07 11/07/21 05:07 Labs: Abnormal Lab Results 11/07/21 11/06/21 11/06/21 05:07 12:00 10:03 RBC 3.61 L Hgb 12.9 L Hct 36.6 L MCV 101.4 H MCH 35.7 H MPV 10.7 H Neut % (Auto) 89.5 H Lymph % (Auto) 5.6 L Lymph # (Auto) 0.62 L [place] # (Auto) Absolute Neutrophils 9.84 H Sodium 131 L Chloride 94 L Carbon Dioxide 19 L Anion Gap 18.0 H Creatinine 0.5 L Glucose 263 H Urine Protein Trace A Urine Glucose (UA) 250 mg/dl A Urine Ketones >=160 mg/dl A Urine Occult Blood Trace-lysed A Urine WBC 5 H Hyaline Casts 7 H Urine Mucus Mod A 11/06/21 10:03 RBC 4.24 L Hgb Hct MCV MCH 35.1 H MPV 10.8 H Neut % (Auto) Lymph % (Auto) 14.1 L Lymph # (Auto) 1.24 L [place] # (Auto) 0.98 H Absolute Neutrophils Sodium Chloride Carbon Dioxide Anion Gap Creatinine Glucose Urine Protein Urine Glucose (UA) Urine Ketones Urine Occult Blood Urine WBC Hyaline Casts Urine Mucus Meds: Medications Acetaminophen (Acetaminophen 325 Mg Tablet) 650 mg PO Q6HP PRN; Protocol PRN Reason: Per Pain Protocol/Fever > 101 Acetaminophen (Acetaminophen 500 Mg Tablet) 1,000 mg PO Q8 [facility]; Protocol Last Admin: 11/07/21 05:14 Dose: Not Given Documented by: Hydrocodone Bitart/Acetaminophen (Hydrocodone/Apap 7.5/325mg Tablet) 1 tab PO Q4HP PRN; Protocol PRN Reason: Per Pain Protocol Last Admin: 11/07/21 03:57 Dose: 1 tab Documented by: Albuterol/Ipratropium (Ipratropium/Albuterol 3 Ml Ampul.Neb) 3 ml NEB Q4HP PRN PRN Reason: Shortness Of Breath Dextrose (Dextrose 50% 50 Ml Vial) 0 ml IV UD PRN PRN Reason: Hypoglycemia Diagnostic Test (Pha) (Accu-Chek 1 Each Strip) 1 each FS [facility] Last Admin: 11/07/21 06:02 Dose: 1 each Documented by: Docusate Sodium (Docusate Sodium 100 Mg Capsule) 100 mg PO BID [facility] Last Admin: 11/06/21 22:47 Dose: 100 mg Documented by: Enoxaparin Sodium (Enoxaparin 40 Mg/0.4 Ml Syringe) 40 mg SQ DAILY [facility] Glucose (Dextrose 31 Gm Oral.Susp) 15 gm PO PRN PRN PRN Reason: Hypoglycemia Potassium Chloride 40 meq/ (Dextrose) 520 mls @ 130 mls/hr IV UD PRN PRN Reason: Potassium < 3 Magnesium Sulfate (Magnesium Sulfate) 2 gm in 50 mls @ 50 mls/hr IV UD PRN PRN Reason: Magnesium </= 1.6 Acetaminophen (Ofirmev) 1,000 mg in 100 mls @ 200 mls/hr IV Q8 [facility]; Protocol Last Infusion: 11/07/21 07:01 Dose: Infused Documented by: Lactated Ringer's (Lactated Ringers) 1,000 mls @ 75 mls/hr IV .[id number] [facility] Last Admin: 11/06/21 22:46 Dose: Not Given Documented by: Ibuprofen (Ibuprofen 200 Mg Tablet) 200 mg PO DAILYP PRN PRN Reason: Pain Insulin Glargine (Insulin Glargine, Human 1 Unit/0.01 Ml) 5 unit SQ BID [facility] Last Admin: 11/06/21 23:05 Dose: 5 units Documented by: Insulin Human Lispro (Insulin Lispro 1 Unit/0.01 Ml Unit) 0 unit SQ [facility]; Protocol Last Admin: 11/07/21 06:02 Dose: 10 units Documented by: Ketorolac Tromethamine (Ketorolac 30 Mg/Ml Vial) 15 mg IV Q6HP PRN PRN Reason: Pain Stop: 11/08/21 21:24 Lisinopril (Lisinopril 20 Mg Tablet) 40 mg PO QDAY [facility] Methocarbamol (Methocarbamol 1,000 Mg/10 Ml Vial) 750 mg IV Q6HP PRN PRN Reason: Muscle Spasm Methocarbamol (Methocarbamol 750 Mg Tablet) 500 mg PO Q6HP PRN PRN Reason: Muscle Spasm Ondansetron HCl (Ondansetron 4 Mg/2 Ml Vial) 4 mg IV Q4HP PRN PRN Reason: Nausea And Vomiting Oxycodone HCl (Oxycodone Hcl 5 Mg Tablet) 5 - 10 mg PO Q4HP PRN; Protocol PRN Reason: Per Pain Protocol Polyethylene Glycol (Polyethylene Glycol 3350 17 Gm Packet) 17 gm PO DAILYP PRN PRN Reason: Constipation Potassium Chloride (Potassium Chloride 20 Meq Tablet) 40 meq PO UD PRN PRN Reason: Potssium is 3-3.5 Potassium Chloride (Potassium Chloride 20 Meq Tablet) 40 meq PO UD PRN PRN Reason: Potassium < 3 Senna (Sennosides 1 Tablet) 2 tab PO DAILYP PRN PRN Reason: Constipation Sodium Chloride (0.9 % Sodium Chloride 10 Ml Syringe) 10 ml IV Q8 [facility] Last Admin: 11/07/21 05:29 Dose: 10 ml Documented by: Throat Lozenges (Benzocaine/Menthol 1 Lozenge) 1 lozenge PO PRN PRN PRN Reason: Sore Throat A/P Narrative A/P Narrative: A: *Left hip fracture: s/p ORIF (11/06) *DM w/hyperglycemia: -A1c 5.9 *HTN: *Hyponatremia/hypochloremia: *Volume depletion: improved P: -Cooper orthopedic surgery -Pain control -home insulin regimen -Continue home lisinopril -PT/OT -ppx: SCD, postop per Ortho lovenox Full code Time Spent With Patient Time: Total time spent is greater than 50% in coordination of care (as documented) at patient's floor/unit and/or counseling patient: QUALITY Stroke Symptom Onset Unknown: No VTE Deep Vein Thrombosis/Pulmonary Embolism Present on Admission: No
--- NOTE | 2021-11-07 08:01 | XRay Report ---
HISTORY: Postop left hip replacement for fracture. Findings: there is a well-positioned left total hip prosthesis. No new fracture has developed. There are calcified plaques in the left iliac and femoral arteries. IMPRESSION: Well-positioned left hip prosthesis Interpreted and Authenticated by: Jens Zhang 11/07/21
[2021-11-07 08:09] LABS: ALT/SGPT 15 U/L (<40); AST/SGOT 20 U/L (<40); Albumin 2.9 gm/dL (3.2-5.2); Albumin/Globulin Ratio 1.2 (1.0-2.3); Alkaline Phosphatase 82 U/L (39-117); Bilirubin,Direct < 0.2 mg/dL (0-0.3); Bilirubin,Total 0.3 mg/dL (0.1-1.0); Blood Urea Nitrogen 9 mg/dL (8-23); Calcium 7.9 mg/dL (8.6-10.4); Carbon Dioxide 14 mmol/L (22-30); Chloride 92 mmol/L (96-108); Globulin 2.5 gm/dL (2.2-3.7); Glomerular Filtration Rate 100; Glucose 325 mg/dL (70-105); Lactate Dehydrogenase 271 U/L (135-225); Phosphorous 2.6 mg/dL (2.5-4.5); Triglycerides 113 mg/dL (<150); Uric Acid 3.2 mg/dL (2.5-8.0)
[2021-11-07] MEDS ORDERED: SODIUM CHLORIDE 1 GM TABLET PO ONE (08:43)
[2021-11-07] MEDS ORDERED: INSULIN LISPRO 1 UNIT/0.01 ML UNIT SQ SCH ×2 (09:00→11:30)
--- NOTE | 2021-11-07 09:26 | XRay Report ---
HISTORY: FINDINGS: IMPRESSION: 0.6 minutes of fluoroscopy time was used. Interpreted and Authenticated by: Jens Zhang 11/07/21
[2021-11-07] MEDS: ONDANSETRON 4 MG/2 ML VIAL IV PRN ×2 (10:33→19:28)
[2021-11-07] MEDS: ENOXAPARIN 40 MG/0.4 ML SYRINGE SQ SCH (10:42)
[2021-11-07] MEDS: DOCUSATE SODIUM 100 MG CAPSULE PO SCH ×2 (10:42→19:19)
[2021-11-07] MEDS: ATORVASTATIN 10 MG TABLET PO SCH (10:42)
[2021-11-07] MEDS: LISINOPRIL 20 MG TABLET PO SCH (10:43)
[2021-11-07] MEDS: SODIUM BICARBONATE 650 MG TABLET PO SCH ×3 (10:43→19:19)
[2021-11-07] MEDS: INSULIN GLARGINE, HUMAN 1 UNIT/0.01 ML SQ SCH ×2 (10:43→19:13)
[2021-11-07] MEDS: oxyCODONE HCL 5 MG TABLET PO PRN ×3 (10:44→19:20)
--- NOTE | 2021-11-07 11:23 | Operative Note ---
DATE OF OPERATION: 11/06/2021 PREOPERATIVE DIAGNOSIS: Left displaced femoral neck fracture. POSTOPERATIVE DIAGNOSIS: Left displaced femoral neck fracture. PROCEDURE PERFORMED: Left anterior total hip arthroplasty. SURGEON: Monty Cooper M.D. SENIOR BIOINFORMATICS SCIENTIST: Yadiel Martines PA-C. The PA's assistance was required for the safe and efficient completion of the entire case. This provider's expertise and technical skill were required throughout the case. The PA assisted with preoperative coordination, intraoperative retraction, wound closure, dressing and splint application, as well as postoperative documentation and care coordination. ANESTHESIA: General with spinal. INTRAVENOUS FLUIDS: 2200 mL lactated Ringer's. ESTIMATED BLOOD LOSS: 100 mL. ANTIBIOTICS: 2 grams Ancef. INTRAOPERATIVE COMPLICATIONS: None apparent. PATHOLOGY/LAB: None; however, disposed of the femoral head and neck portion which looked nonpathologic. IMPLANTS: Actis size 10 stem high offset with a +1.5 ceramic 36mm head, a Avinger 56 mm shell with a neutral liner. INDICATIONS FOR PROCEDURE: The patient is a 66-year-old diabetic male who sustained a fall, now approximately 2 to 3 days ago, but subsequently was able to ambulate minimally until this morning when he felt a pop and inability to ambulate additionally. He presented to the emergency department for evaluation and found to have a displaced femoral neck fracture. I discussed this with him at length. He has mild underlying arthritis of his hip joints and discussed options to include hip hemiarthroplasty versus total hip arthroplasty, risks and benefits of each procedure and each procedure, which he understands. After discussion, he wants to proceed with total hip arthroplasty. DESCRIPTION OF PROCEDURE: Patient was met in the preoperative holding area where site was verified and marked with the patient's input. He was taken back to the operating room where he underwent spinal and then general anesthesia. He was placed on the [place] table with a padded perineal post and padded boots in place. Radiographs were taken of the AP pelvis as well as the operative and nonoperative hip itself. These were used for templating. At this point, the left hip was prepped and draped in the usual sterile fashion with ChloraPrep. Surgical timeout was performed to verify patient's identity, correct procedure being performed, and correct extremity being operated on. Everybody was in agreement. I created approximately an 8 cm incision two fingerbreadths distal to the ASIS and two fingerbreadths lateral. Skin was sharply incised. Hemostasis was obtained and blunt dissection was taken down to the fascia overlying the tensor fascia. The anterior and posterior pockets were created. IrriSept was utilized throughout the case. We placed our self-retaining retractor at this time. The fascia was incised. The tensor muscle was dissected off bluntly of the fascia at the interval between the sartorius itself and dissected to the saddle of the greater trochanter. A blunt, lighted Cobra retractor was placed over top of this and over the anterior neck and additional blunt Cobra retractor was placed. The interval was further developed and the circumflex vessels were identified and these were coagulated and incised and hemostasis was obtained. The fat pad over top of the capsule was removed as well. I placed a bent Hohmann retractor over the top of the acetabulum to further expose the capsule. Inverted T-capsulotomy was then made and a Cobra retractor was placed inside of this and the fracture was identified. At this point, we replaced the medial Cobra retractor with a radiolucent Cobra retractor and brought in the large C-arm to make our femoral neck cut, which templated on the contralateral side approximately a 20 to 22 mm neck cut. This was then bovied and then cut with an oscillating saw. This was removed and then the head ball was removed with a corkscrew device as well. The Cobra retractor was placed along the anterior acetabulum, posterior acetabulum, and over the superior rim of the acetabulum to further expose the acetabulum. Labrum was sharply excised with a sharp 10 blade. The fovea was cleaned of all soft tissue as well. Then, under large fluoroscopy guidance reamed to the medial wall and upsized the reamer until we got to a size 55, which did appear to fill the acetabulum which had nice cortical bleeding bone circumferentially. This was pulse irrigated and then our shell was placed and impacted with good press fit. I did place one screw just for security. Once this was placed, the liner was placed and ensured that it was impacted and seated. Once this was complete, we focused our attention to expose the femur. We placed a Hope retractor along the femoral neck and released the inferior medial posterior capsule and then released the capsule over to the saddle and created an incision through the capsule laterally to get our sharp retractor over top of the greater trochanter. This was at the interval where the fat pad was visualized to ensure we did not compromise any of the abbuctor tendon. With this exposed, the leg was then extended, externally rotated and adducted, which allowed the femoral neck into view. The posterior capsule was released as well further exposing thefemur. Utilizing a box maker, canal finder, pigtail rasp and a broach, we sized up to a size 10, which did fill the canal with good rotational stability. We placed our high offset neck and a 1.5 head and reduced the joint as was templated. With doing this, we restored our anatomy to the contralateral side nearly symmetric to include the offset and the length. Given that, I was happy with the overall template and the trials. These were then removed and was irrigated. Our final stem was implanted along with our ceramic head, which was a head ball 36 mm ceramic head and the joint was reduced, and again radiographs were taken and overall appeared to be in good overall alignment. At this point, the wound was copiously irrigated again with IrriSept throughout the whole case, as well as at this point 0.35% Betadine solution and let it set for 3 minutes and then pulse lavaged this out. The capsule was closed with #2 Ethibond and we placed vancomycin powder deep in this wound. The tensor fascia was closed with 2-0 Vicryl in running fashion, irrigated out this area again and then placed the remaining vancomycin powder in this level. The subcutaneous fat layer was closed with 2-0 Vicryl as well as a running 3-0 Monocryl, mariela and Steris with a silver dressing applied. The patient was then awoken from anesthesia and transferred to PACU in stable condition. POSTOPERATIVE PLAN: The patient will be admitted back to the floor and work with physical therapy and depending on progress, will likely disposition to home. DESTIN:brittny Job ID: [id number] Doc ID: [id number] [facility]
[2021-11-08] MEDS: oxyCODONE HCL 5 MG TABLET PO PRN ×5 (03:13→23:55)
[2021-11-08] MEDS: INSULIN LISPRO 1 UNIT/0.01 ML UNIT SQ SCH ×6 (04:15→23:48)
[2021-11-08] MEDS: ACETAMINOPHEN 1,000 MG/100 ML BAG IV SCH ×3 (04:15→20:16)
[2021-11-08] MEDS: 0.9 % SODIUM CHLORIDE 10 ML SYRINGE IV SCH ×4 (04:16→20:16)
[2021-11-08] MEDS: ACETAMINOPHEN 500 MG TABLET PO SCH ×3 (04:16→20:15)
--- NOTE | 2021-11-08 07:51 | Internal Med Progress Note ---
SUBJECTIVE Subjective Patient information: Note initiated : 11/08/21 at 7:49 am Service Date, if different from initiated Date: [] Patient: Mike Pink a 66 y/o M admitted on 11/06/21 for left hip pain/deformity. Chief Complaint: [] Interval history: Chief Complaint: [] History of present illness: Mr. Pink is a 66 year old M Who fell in his garage several days ago and been walking on it with pain that feels like he made it worse today. No other pains or complaints. Has a chronic cough. Work-up in the ED revealed left hip fracture Dr. Cooper was contacted orthopedic surgery. 11/07 No new complaints overnight events. Patient status post ORIF. 11/08 No overnight event or new complaints. Other than poor sleep. Review of Systems: denies headache/fever/chills/nausea/vomiting/chest or abdominal pain/cough/dyspnea/diarrhea. Otherwise see above. Constitutional Vitals: Vital Signs Temp Pulse Resp BP Pulse Ox 97.3 F 93 H 18 127/73 96 11/08/21 03:35 11/08/21 03:35 11/08/21 03:35 11/08/21 03:35 11/08/21 03:35 Period Temp Pulse Resp BP Sys/Valle Pulse Ox Last 24 Hr 97.3 F-98.3 F 91-107 12-20 117-141/69-79 96-100 Intake and Output 11/07/21 11/08/21 11/08/21 21:59 05:59 13:59 Intake Total 600 100 Output Total 150 350 Balance 450 -250 Weight 71.804 kg Intake & Output: Intake & Output 11/07/21 11/08/21 11/08/21 21:59 05:59 13:59 Intake Total 600 100 Output Total 150 350 Balance 450 -250 Weight 71.804 kg Intake: IV 100 100 Oral 500 Output: Void Amount 150 350 Other: Meal Dinner Percent of Meal Consumed 50% Feeding Ability Independent Urine Appearance Clear Urine Color Bright Yellow Urine Odor Strong Exam: General: Alert, Awake, No acute Distress Eyes/N/T: EOMI, Head/Neck: neck supple, CV: RRR, No murmurs, Pulm: Clear b/l, no wheezing/rhonchi/rales Abd: soft, nontender, +BS x4 Ext: no clubbing/cyanosis/edema Neuro: Alert, no focal deficits, moves all extremities, OBJ DATA Labs CBC & Chem 7: 11/07/21 05:07 11/08/21 05:15 Labs: Abnormal Lab Results 11/07/21 11/07/21 11/06/21 05:07 05:07 12:00 RBC 3.61 L Hgb 12.9 L Hct 36.6 L MCV 101.4 H MCH 35.7 H MPV 10.7 H Neut % (Auto) 89.5 H Lymph % (Auto) 5.6 L Lymph # (Auto) 0.62 L [place] # (Auto) Absolute Neutrophils 9.84 H Sodium 128 L Chloride 92 L Carbon Dioxide 14 L Anion Gap 22.0 H Creatinine Glucose 325 H Calcium 7.9 L GGT 245 H Lactate Dehydrogenase 271 H Total Protein 5.4 L Albumin 2.9 L Urine Protein Trace A Urine Glucose (UA) 250 mg/dl A Urine Ketones >=160 mg/dl A Urine Occult Blood Trace-lysed A Urine WBC 5 H Hyaline Casts 7 H Urine Mucus Mod A 11/06/21 11/06/21 10:03 10:03 RBC 4.24 L Hgb Hct MCV MCH 35.1 H MPV 10.8 H Neut % (Auto) Lymph % (Auto) 14.1 L Lymph # (Auto) 1.24 L [place] # (Auto) 0.98 H Absolute Neutrophils Sodium 131 L Chloride 94 L Carbon Dioxide 19 L Anion Gap 18.0 H Creatinine 0.5 L Glucose 263 H Calcium GGT Lactate Dehydrogenase Total Protein Albumin Urine Protein Urine Glucose (UA) Urine Ketones Urine Occult Blood Urine WBC Hyaline Casts Urine Mucus Meds: Medications Acetaminophen (Acetaminophen 325 Mg Tablet) 650 mg PO Q6HP PRN; Protocol PRN Reason: Per Pain Protocol/Fever > 101 Acetaminophen (Acetaminophen 500 Mg Tablet) 1,000 mg PO Q8 [place]; Protocol Last Admin: 11/08/21 04:16 Dose: Not Given Documented by: Hydrocodone Bitart/Acetaminophen (Hydrocodone/Apap 7.5/325mg Tablet) 1 tab PO Q4HP PRN; Protocol PRN Reason: Per Pain Protocol Last Admin: 11/07/21 03:57 Dose: 1 tab Documented by: Albuterol/Ipratropium (Ipratropium/Albuterol 3 Ml Ampul.Neb) 3 ml NEB Q4HP PRN PRN Reason: Shortness Of Breath Atorvastatin Calcium (Atorvastatin 10 Mg Tablet) 5 mg PO DAILY [facility] Last Admin: 11/07/21 10:42 Dose: 5 mg Documented by: Dextrose (Dextrose 50% 50 Ml Vial) 0 ml IV UD PRN PRN Reason: Hypoglycemia Diagnostic Test (Pha) (Accu-Chek 1 Each Strip) 1 each FS Q4 [facility] Last Admin: 11/08/21 03:37 Dose: 1 each Documented by: Docusate Sodium (Docusate Sodium 100 Mg Capsule) 100 mg PO BID [facility] Last Admin: 11/07/21 19:19 Dose: 100 mg Documented by: Enoxaparin Sodium (Enoxaparin 40 Mg/0.4 Ml Syringe) 40 mg SQ DAILY [facility] Last Admin: 11/07/21 10:42 Dose: 40 mg Documented by: Glucose (Dextrose 31 Gm Oral.Susp) 15 gm PO PRN PRN PRN Reason: Hypoglycemia Potassium Chloride 40 meq/ (Dextrose) 520 mls @ 130 mls/hr IV UD PRN PRN Reason: Potassium < 3 Magnesium Sulfate (Magnesium Sulfate) 2 gm in 50 mls @ 50 mls/hr IV UD PRN PRN Reason: Magnesium </= 1.6 Acetaminophen (Ofirmev) 1,000 mg in 100 mls @ 200 mls/hr IV Q8 [facility]; Protocol Last Infusion: 11/08/21 05:15 Dose: Infused Documented by: Ibuprofen (Ibuprofen 200 Mg Tablet) 200 mg PO DAILYP PRN PRN Reason: Pain Last Admin: 11/07/21 09:30 Dose: 200 mg Documented by: Insulin Glargine (Insulin Glargine, Human 1 Unit/0.01 Ml) 5 unit SQ BID [facility] Last Admin: 11/07/21 19:13 Dose: Not Given Documented by: Insulin Human Lispro (Insulin Lispro 1 Unit/0.01 Ml Unit) 0 unit SQ Q4H [facility]; Protocol Last Admin: 11/08/21 04:15 Dose: Not Given Documented by: Ketorolac Tromethamine (Ketorolac 30 Mg/Ml Vial) 15 mg IV Q6HP PRN PRN Reason: Pain Stop: 11/08/21 21:24 Last Admin: 11/07/21 13:07 Dose: 15 mg Documented by: Lisinopril (Lisinopril 20 Mg Tablet) 40 mg PO QDAY [facility] Last Admin: 11/07/21 10:43 Dose: 40 mg Documented by: Methocarbamol (Methocarbamol 1,000 Mg/10 Ml Vial) 750 mg IV Q6HP PRN PRN Reason: Muscle Spasm Last Admin: 11/07/21 15:38 Dose: 750 mg Documented by: Methocarbamol (Methocarbamol 750 Mg Tablet) 500 mg PO Q6HP PRN PRN Reason: Muscle Spasm Last Admin: 11/08/21 03:14 Dose: 500 mg Documented by: Ondansetron HCl (Ondansetron 4 Mg/2 Ml Vial) 4 mg IV Q4HP PRN PRN Reason: Nausea And Vomiting Last Admin: 11/07/21 19:28 Dose: 4 mg Documented by: Oxycodone HCl (Oxycodone Hcl 5 Mg Tablet) 5 - 10 mg PO Q4HP PRN; Protocol PRN Reason: Per Pain Protocol Last Admin: 11/08/21 03:13 Dose: 5 mg Documented by: Polyethylene Glycol (Polyethylene Glycol 3350 17 Gm Packet) 17 gm PO DAILYP PRN PRN Reason: Constipation Potassium Chloride (Potassium Chloride 20 Meq Tablet) 40 meq PO UD PRN PRN Reason: Potssium is 3-3.5 Potassium Chloride (Potassium Chloride 20 Meq Tablet) 40 meq PO UD PRN PRN Reason: Potassium < 3 Senna (Sennosides 1 Tablet) 2 tab PO DAILYP PRN PRN Reason: Constipation Sodium Chloride (0.9 % Sodium Chloride 10 Ml Syringe) 10 ml IV Q8 [facility] Last Admin: 11/08/21 04:16 Dose: 10 ml Documented by: Throat Lozenges (Benzocaine/Menthol 1 Lozenge) 1 lozenge PO PRN PRN PRN Reason: Sore Throat A/P Narrative A/P Narrative: A: *Left hip fracture: s/p ORIF (11/06) *DM w/hyperglycemia: -A1c 5.9 *HTN: *Hyponatremia/hypochloremia: *Volume depletion: improved P: -Cooper orthopedic surgery -Pain control -home insulin regimen -Continue home lisinopril -PT/OT -ppx: SCD, postop per Ortho lovenox Full code Time Spent With Patient Time: Total time spent is greater than 50% in coordination of care (as documented) at patient's floor/unit and/or counseling patient: QUALITY Stroke Symptom Onset Unknown: No VTE Deep Vein Thrombosis/Pulmonary Embolism Present on Admission: No
--- NOTE | 2021-11-08 07:57 | Orthopedic Progress Note ---
SUBJECTIVE Subjective Patient information: Note initiated : 11/08/21 at 7:54 am Service Date, if different from initiated Date: [] Patient: Mike Pink 66 y/o M admitted on 11/06/21 for left hip pain/deformity. Chief Complaint: Pt reports significant pain. mild to moderate bleeding from wound. Principal diagnosis: L hip fx with JULISA. Constitutional Vitals: Vital Signs Temp Pulse Resp BP Pulse Ox 97.3 F 93 H 18 127/73 96 11/08/21 03:35 11/08/21 03:35 11/08/21 03:35 11/08/21 03:35 11/08/21 03:35 Period Temp Pulse Resp BP Sys/Valle Pulse Ox Last 24 Hr 97.3 F-98.3 F 91-107 12-20 117-141/69-79 96-100 Intake and Output 11/07/21 11/08/21 11/08/21 21:59 05:59 13:59 Intake Total 600 100 Output Total 150 350 Balance 450 -250 Weight 158 lb 4.8 oz Intake & Output: Intake & Output 11/07/21 11/08/21 11/08/21 21:59 05:59 13:59 Intake Total 600 100 Output Total 150 350 Balance 450 -250 Weight 158 lb 4.8 oz Intake: IV 100 100 Oral 500 Output: Void Amount 150 350 Other: Meal Dinner Percent of Meal Consumed 50% Feeding Ability Independent Urine Appearance Clear Urine Color Bright Yellow Urine Odor Strong Skin Skin exam: Present dry and warm Additional comments: Bandage changed this morning. clean and dry now. NVI-distal OBJ DATA Labs CBC & Chem 7: 11/07/21 05:07 11/07/21 05:07 Labs: Abnormal Lab Results 11/07/21 11/07/21 11/06/21 05:07 05:07 12:00 RBC 3.61 L Hgb 12.9 L Hct 36.6 L MCV 101.4 H MCH 35.7 H MPV 10.7 H Neut % (Auto) 89.5 H Lymph % (Auto) 5.6 L Lymph # (Auto) 0.62 L [place] # (Auto) Absolute Neutrophils 9.84 H Sodium 128 L Chloride 92 L Carbon Dioxide 14 L Anion Gap 22.0 H Creatinine Glucose 325 H Calcium 7.9 L GGT 245 H Lactate Dehydrogenase 271 H Total Protein 5.4 L Albumin 2.9 L Urine Protein Trace A Urine Glucose (UA) 250 mg/dl A Urine Ketones >=160 mg/dl A Urine Occult Blood Trace-lysed A Urine WBC 5 H Hyaline Casts 7 H Urine Mucus Mod A 11/06/21 11/06/21 10:03 10:03 RBC 4.24 L Hgb Hct MCV MCH 35.1 H MPV 10.8 H Neut % (Auto) Lymph % (Auto) 14.1 L Lymph # (Auto) 1.24 L [place] # (Auto) 0.98 H Absolute Neutrophils Sodium 131 L Chloride 94 L Carbon Dioxide 19 L Anion Gap 18.0 H Creatinine 0.5 L Glucose 263 H Calcium GGT Lactate Dehydrogenase Total Protein Albumin Urine Protein Urine Glucose (UA) Urine Ketones Urine Occult Blood Urine WBC Hyaline Casts Urine Mucus Meds: Medications Acetaminophen (Acetaminophen 325 Mg Tablet) 650 mg PO Q6HP PRN; Protocol PRN Reason: Per Pain Protocol/Fever > 101 Acetaminophen (Acetaminophen 500 Mg Tablet) 1,000 mg PO Q8 [facility]; Protocol Last Admin: 11/08/21 04:16 Dose: Not Given Documented by: Hydrocodone Bitart/Acetaminophen (Hydrocodone/Apap 7.5/325mg Tablet) 1 tab PO Q4HP PRN; Protocol PRN Reason: Per Pain Protocol Last Admin: 11/07/21 03:57 Dose: 1 tab Documented by: Albuterol/Ipratropium (Ipratropium/Albuterol 3 Ml Ampul.Neb) 3 ml NEB Q4HP PRN PRN Reason: Shortness Of Breath Atorvastatin Calcium (Atorvastatin 10 Mg Tablet) 5 mg PO DAILY [facility] Last Admin: 11/07/21 10:42 Dose: 5 mg Documented by: Dextrose (Dextrose 50% 50 Ml Vial) 0 ml IV UD PRN PRN Reason: Hypoglycemia Diagnostic Test (Pha) (Accu-Chek 1 Each Strip) 1 each FS Q4 [facility] Last Admin: 11/08/21 03:37 Dose: 1 each Documented by: Docusate Sodium (Docusate Sodium 100 Mg Capsule) 100 mg PO BID [facility] Last Admin: 11/07/21 19:19 Dose: 100 mg Documented by: Enoxaparin Sodium (Enoxaparin 40 Mg/0.4 Ml Syringe) 40 mg SQ DAILY [facility] Last Admin: 11/07/21 10:42 Dose: 40 mg Documented by: Glucose (Dextrose 31 Gm Oral.Susp) 15 gm PO PRN PRN PRN Reason: Hypoglycemia Potassium Chloride 40 meq/ (Dextrose) 520 mls @ 130 mls/hr IV UD PRN PRN Reason: Potassium < 3 Magnesium Sulfate (Magnesium Sulfate) 2 gm in 50 mls @ 50 mls/hr IV UD PRN PRN Reason: Magnesium </= 1.6 Acetaminophen (Ofirmev) 1,000 mg in 100 mls @ 200 mls/hr IV Q8 [facility]; Protocol Last Infusion: 11/08/21 05:15 Dose: Infused Documented by: Ibuprofen (Ibuprofen 200 Mg Tablet) 200 mg PO DAILYP PRN PRN Reason: Pain Last Admin: 11/07/21 09:30 Dose: 200 mg Documented by: Insulin Glargine (Insulin Glargine, Human 1 Unit/0.01 Ml) 5 unit SQ BID [facility] Last Admin: 11/07/21 19:13 Dose: Not Given Documented by: Insulin Human Lispro (Insulin Lispro 1 Unit/0.01 Ml Unit) 0 unit SQ Q4H [facility]; Protocol Last Admin: 11/08/21 04:15 Dose: Not Given Documented by: Ketorolac Tromethamine (Ketorolac 30 Mg/Ml Vial) 15 mg IV Q6HP PRN PRN Reason: Pain Stop: 11/08/21 21:24 Last Admin: 11/07/21 13:07 Dose: 15 mg Documented by: Lisinopril (Lisinopril 20 Mg Tablet) 40 mg PO QDAY [facility] Last Admin: 11/07/21 10:43 Dose: 40 mg Documented by: Methocarbamol (Methocarbamol 1,000 Mg/10 Ml Vial) 750 mg IV Q6HP PRN PRN Reason: Muscle Spasm Last Admin: 11/07/21 15:38 Dose: 750 mg Documented by: Methocarbamol (Methocarbamol 750 Mg Tablet) 500 mg PO Q6HP PRN PRN Reason: Muscle Spasm Last Admin: 11/08/21 03:14 Dose: 500 mg Documented by: Ondansetron HCl (Ondansetron 4 Mg/2 Ml Vial) 4 mg IV Q4HP PRN PRN Reason: Nausea And Vomiting Last Admin: 11/07/21 19:28 Dose: 4 mg Documented by: Oxycodone HCl (Oxycodone Hcl 5 Mg Tablet) 5 - 10 mg PO Q4HP PRN; Protocol PRN Reason: Per Pain Protocol Last Admin: 11/08/21 03:13 Dose: 5 mg Documented by: Polyethylene Glycol (Polyethylene Glycol 3350 17 Gm Packet) 17 gm PO DAILYP PRN PRN Reason: Constipation Potassium Chloride (Potassium Chloride 20 Meq Tablet) 40 meq PO UD PRN PRN Reason: Potssium is 3-3.5 Potassium Chloride (Potassium Chloride 20 Meq Tablet) 40 meq PO UD PRN PRN Reason: Potassium < 3 Senna (Sennosides 1 Tablet) 2 tab PO DAILYP PRN PRN Reason: Constipation Sodium Chloride (0.9 % Sodium Chloride 10 Ml Syringe) 10 ml IV Q8 [facility] Last Admin: 11/08/21 04:16 Dose: 10 ml Documented by: Throat Lozenges (Benzocaine/Menthol 1 Lozenge) 1 lozenge PO PRN PRN PRN Reason: Sore Throat A/P Narrative A/P Narrative: 2 day s/p L JULISA for femoral neck fx -stable Cont medical management per hospitalist. will discuss possible block with anesethesia. Time Spent With Patient Time: Total time spent is greater than 50% in coordination of care (as documented) at patient's floor/unit and/or counseling patient:
[2021-11-08 08:16] LABS: Blood Urea Nitrogen 8 mg/dL (8-23); Calcium 8.2 mg/dL (8.6-10.4); Carbon Dioxide 23 mmol/L (22-30); Chloride 96 mmol/L (96-108); Glomerular Filtration Rate 114; Glucose 101 mg/dL (70-105)
[2021-11-08] MEDS: ONDANSETRON 4 MG/2 ML VIAL IV PRN (08:25)
[2021-11-08] MEDS ORDERED: POTASSIUM CHLORIDE 20 MEQ TABLET PO ONE (08:36)
--- NOTE | 2021-11-08 08:50 | General Surgery Progress Note ---
Surgical - Auxillary Note - Subjective Patient Information: Note initiated : 11/08/21 at 8:43 am Service Date, if different from initiated Date: [] Patient: Mike Pink 66 y/o M admitted on 11/06/21 for left hip pain/deformity. Chief Complaint: [POD2 pain, anesthesia perioperative pain management consult chart reviewed, VSS patient seen/examined demonstrates good stability and ROM, NVI. ROM does not cause inordinate pain dressing dry/intact underlying diabetic neuropathy complicating clinical presentation extensive discussion with pt RE PNB and risks/benefits. I am not convinced that pt experiencing pain pattern that would be helped by a PNB *(SEUN), pt agreed to continue PO pain meds and participate with PT today and then I will be back to reassess. Also discussed with staff PT, pt poorly motivated and has low tolerance threshold ] DANIEL
[2021-11-08] MEDS: ATORVASTATIN 10 MG TABLET PO SCH (09:19)
[2021-11-08] MEDS: INSULIN GLARGINE, HUMAN 1 UNIT/0.01 ML SQ SCH ×2 (09:19→20:15)
[2021-11-08] MEDS: LISINOPRIL 20 MG TABLET PO SCH (09:20)
[2021-11-08] MEDS: DOCUSATE SODIUM 100 MG CAPSULE PO SCH ×2 (09:20→20:16)
[2021-11-08] MEDS: ENOXAPARIN 40 MG/0.4 ML SYRINGE SQ SCH (09:20)
[2021-11-08] MEDS ORDERED: METHOCARBAMOL 750 MG TABLET PO PRN (13:25)
--- NOTE | 2021-11-08 15:42 | Discharge Summary ---
Discharge Provider Provider Patient information: Note initiated : 11/08/21 at 3:41 pm Service Date, if different from initiated Date: [] Patient: Mike Pink 66 y/o M admitted on 11/06/21 for left hip pain/deformity. Chief Complaint: [] Date of admission: 11/06/21 12:15 Discharge date: 11/09/21 Primary care physician: Barbara Cartagena Consults: 11/06/21 Consult to Physician [CONS] Stat Comment: Consulting Provider: Monty Cooper Reason For Exam: Physician to Consult 11/06/21 10:52 Consult to Physician [CONS] Stat Comment: Consulting Provider: Colt Sanches Reason For Exam: Physician to Consult Discharge Meds Discharge Medications Home Medications insulin glargine 100 unit/mL subcutaneous solution 25 unit SUB-Q QAM ml 04/22/15 [History Confirmed 11/07/21 Last Taken Unknown] insulin lispro 100 unit/mL subcutaneous solution See Protocol SUB-Q ACHS ml 04/22/15 [History Confirmed 11/07/21 Last Taken Unknown] ibuprofen 200 mg tablet 200 mg PO PRN tab 04/18/16 [History Confirmed 11/06/21 Last Taken Unknown] lisinopril 20 mg tablet 40 mg PO QDAY 04/18/16 [History Confirmed 11/06/21 Last Taken Unknown] atorvastatin [Lipitor] 5 mg PO QAM 05/20/19 [History Confirmed 11/07/21 Last Taken 2 Days Ago ~11/05/21] acetaminophen 500 mg tablet 1,000 mg PO Q8 #90 tab 11/07/21 [Rx Last Taken Unknown] amlodipine 5 mg tablet 5 mg PO DAILY 11/07/21 [History Confirmed 11/07/21 Last Taken 1 Day Ago ~11/06/21] docusate sodium 100 mg capsule 100 mg PO BID #60 cap 11/07/21 [Rx Last Taken Unknown] enoxaparin 40 mg/0.4 mL subcutaneous syringe (Lovenox) 40 mg (0.4 mL) SQ DAILY #29 ml 11/07/21 [Rx Last Taken Unknown] methocarbamol 750 mg tablet 500 mg PO Q6HP PRN #20 tab 11/07/21 [Rx Last Taken Unknown] oxycodone 5 mg tablet 5 - 10 mg PO Q4HP PRN #60 tab 11/07/21 [Rx Last Taken Unknown] polyethylene glycol 3350 17 gram oral powder packet (HealthyLax) 17 gm PO DAILYP PRN 20 Days ea 11/07/21 [Rx Last Taken Unknown] aspirin 81 mg chewable tablet 81 mg CHEWED BID #56 tab 11/09/21 [Rx Last Taken Unknown] COURSE Hospital Course Hospital course: History of present illness: Mr. Pink is a 66 year old M Who fell in his garage several days ago and been walking on it with pain that feels like he made it worse today. No other pains or complaints. Has a chronic cough. Work-up in the ED revealed left hip fracture Dr. Cooper was contacted orthopedic surgery. 11/07 No new complaints overnight events. Patient status post ORIF. 11/08 No overnight event or new complaints. Other than poor sleep 11/09 Discharge to assisted facility. A: *Left hip fracture: s/p ORIF (11/06) *DM w/hyperglycemia: *HTN: *Volume depletion: improved Discharge diagnosis: Left hip fracture diabetes hypertension volume depletion Time Spent with Patient Time attestation: Total time spent providing and/or coordinating discharge services: Time spent: Greater than 30 minutes EXAM Constitutional Vitals: Temp Pulse Resp BP Pulse Ox 98.2 F 99 H 18 135/77 97 11/08/21 08:00 11/08/21 08:00 11/08/21 08:00 11/08/21 08:00 11/08/21 08:00 Discharge Data Data Completed and Pending Labs on day of discharge: Labs from last 24 hours 11/08/21 05:15 Sodium 133 Potassium 3.0 L Chloride 96 Carbon Dioxide 23 Anion Gap 14.0 BUN 8 Creatinine 0.5 L GFR Calculation 114 Glucose 101 Calcium 8.2 L Discharge Plan Patient/Caregiver Discharge Instructions Activity: ambulate only with your walker and increase activity as tolerated Diet: Consistent Carbohydrate Instructions: Total Hip Replacement (DC) Activity Restrictions/Additional Instructions: -weight bearing as tolerated- use a walker or crutches as needed. -A silver dressing on your hip however do not get this wet until after your follow up appointment. -Start physical therapy this as soon as possible. Until then, work on tigh tening and relaxing your thigh muscles. Tighten your thigh muscles and lift your leg. Work on moving your ankle up and down. Work on bending your knee to 90 degrees. Tighten and relax your butt muscles. Walk about once an hour while awake. -Ice your hip for 20 minutes every 3-4 hours throughout the day. -Aspirin twice daily is to help prevent blood clots- use this for 30 days. -Tylenol is to help with the pain, take this scheduled every 8 hours even if you do not have significant pain. -Oxycodone is the narcotic pain medication which to be taken as needed. Meaning only take it if the other pain medications are not sufficient in controlling your pain. -Robaxin is a muscle relaxer that can help with the pain as well. -Docusate/miralax help prevent constipation while taking the narcotics. This discharge packet is provided to you to help keep you informed about your care. We want to ensure you get everything you need when you go home. You will also be receiving a call from us in a few days to follow up with you and see how you are doing since your discharge. This gives us a chance to listen to any concerns you maybe experiencing since you were discharged or any additional needs you may have, as well as providing us feedback on your care experience. We strive to always provide excellent care and thank you for your feedback and for choosing [facility]. Prescriptions: New polyethylene glycol 3350 [HealthyLax] 17 gram Powder In Packet 17 gm PO DAILYP PRN (Reason: Constipation) 20 Days 0RF acetaminophen 500 mg Tablet 1,000 mg PO Q8 Qty: 90 0RF methocarbamol 750 mg Tablet 500 mg PO Q6HP PRN (Reason: Muscle Spasm) Qty: 20 0RF docusate sodium 100 mg Capsule 100 mg PO BID Qty: 60 0RF oxycodone 5 mg Tablet 5 - 10 mg PO Q4HP PRN (Reason: Per Pain Protocol) Qty: 60 0RF enoxaparin [Lovenox] 40 mg/0.4 mL Syringe 40 mg SQ DAILY Qty: 29 0RF aspirin 81 mg Tablet,Chewable 81 mg CHEWED BID Qty: 56 0RF Continued insulin glargine 100 unit/mL solution 25 unit SUB-Q QAM 0RF Label Comments: Inject 10 units subcutaneously every morning, and 10 units every evening insulin lispro 100 unit/mL solution See Protocol unit SUB-Q ACHS 0RF Protocol: Insulin Sliding Scale, Low Condition: HUMALOG/NOVALOG SC SLIDING Dose/Route: SCALE Condition: FSBS < 70 Dose/Route: Give 4 Oz juice, or 15gm oral Instruction: Glucose, or 25ml D50W IV if Dose/Route: unable to take PO. Recheck in Instruction: 15 min and repeat if FSBS < 70 Condition: FSBS 71-140 Dose/Route: NO COVERAGE Condition: FSBS 141-170 Dose/Route: 1 UNITS Condition: FSBS 171-200 Dose/Route: 2 UNITS Condition: FSBS 201-250 Dose/Route: 3 UNITS Condition: FSBS 251-300 Dose/Route: 4 UNITS Condition: FSBS 301-350 Dose/Route: 6 UNITS Condition: FSBS 351-400 Dose/Route: 8 UNITS Condition: FSBS > 400 Dose/Route: 10 UNITS; REPEAT Q2H X2 Instruction: CONTINUE FOLLOWING SLIDING Condition: SCALE; IF STILL > 400; CALL Dose/Route: PHYSICIAN Label Comments: Inject up to 25 units with each meal per sliding scale Rx Instructions: pt uses a sliding scale at home amlodipine 5 mg tablet 5 mg PO DAILY 0RF lisinopril 20 mg tablet 40 mg PO QDAY 0RF ibuprofen 200 mg tablet 200 mg PO PRN 0RF atorvastatin 5 mg PO QAM 0RF Label Comments: States has been out of this medication and doesn't know how long Discontinued hydrocodone-acetaminophen 7.5-500 mg tablet 1 tab PO Q4H PRN (Reason: Pain) 0RF Other Ambulatory Orders: Physical Therapy at Discharge - JULISA (Routine) Location: None Selected Ordered By: Monty Strickland (ONCE) Location: None Selected Ordered By: Monty Cooper Follow Up Plan Follow up with: Barbara Cartagena ARNP [Primary Care Provider] - Monty Cooper MD [Physician] - Patient Disposition: Xfer SNF Prognosis: Fair Rehab Potential: Fair I certify that the patient requires SNF services: Yes Overall status at discharge: patient is progressing back to baseline Discharge Orders: Discharge Order (Routine); Ordered 11/09/21 Ordered By: Colt Sanches [facility] VTE Deep Vein Thrombosis/Pulmonary Embolism Present on Admission: No
[2021-11-09] MEDS: INSULIN LISPRO 1 UNIT/0.01 ML UNIT SQ SCH ×3 (04:12→12:03)
[2021-11-09] MEDS: ACETAMINOPHEN 500 MG TABLET PO SCH (04:13)
[2021-11-09] MEDS: oxyCODONE HCL 5 MG TABLET PO PRN (04:13)
[2021-11-09] MEDS: 0.9 % SODIUM CHLORIDE 10 ML SYRINGE IV SCH (04:14)
[2021-11-09] MEDS: ACETAMINOPHEN 1,000 MG/100 ML BAG IV SCH (04:14)
--- NOTE | 2021-11-09 07:10 | Orthopedic Progress Note ---
SUBJECTIVE Subjective Patient information: Note initiated : 11/09/21 at 7:06 am Service Date, if different from initiated Date: [] Patient: Mike Pink 66 y/o M admitted on 11/06/21 for left hip pain/deformity. Chief Complaint: [post op day 2. overall doing ok. tolerating oral intake a bit better. has ambulated short distances. pain is controlled with meds] Principal diagnosis: L hip fx with JULISA. Constitutional Vitals: Vital Signs Temp Pulse Resp BP Pulse Ox 97.8 F 81 12 165/80 96 11/09/21 03:45 11/09/21 03:45 11/09/21 03:45 11/09/21 03:45 11/09/21 03:45 Period Temp Pulse Resp BP Sys/Valle Pulse Ox Last 24 Hr 96.2 F-98.4 F 81-102 12-20 122-165/69-81 96-100 Intake and Output 11/08/21 11/09/21 11/09/21 21:59 05:59 13:59 Intake Total 360 300 Output Total 400 150 Balance -40 150 Weight 164 lb 11.2 oz Intake & Output: Intake & Output 11/08/21 11/09/21 11/09/21 21:59 05:59 13:59 Intake Total 360 300 Output Total 400 150 Balance -40 150 Weight 164 lb 11.2 oz Intake: Oral 360 300 Output: Void Amount 400 150 Other: Meal Dinner Percent of Meal Consumed 25% Feeding Ability Independent Urine Appearance Clear Urine Color Light Disha Dark Yellow Urine Odor Strong Additional findings Additional findings: general: alert and oriented left hip: appears silver dressing has been changed. the very top in the crease is less adherent. no significant echymosis. foot is warm well perfused. OBJ DATA Labs CBC & Chem 7: 11/07/21 05:07 11/08/21 05:15 Labs: Abnormal Lab Results 11/08/21 11/07/21 11/07/21 05:15 05:07 05:07 RBC 3.61 L Hgb 12.9 L Hct 36.6 L MCV 101.4 H MCH 35.7 H MPV 10.7 H Neut % (Auto) 89.5 H Lymph % (Auto) 5.6 L Lymph # (Auto) 0.62 L [place] # (Auto) Absolute Neutrophils 9.84 H Sodium 128 L Potassium 3.0 L Chloride 92 L Carbon Dioxide 14 L Anion Gap 22.0 H Creatinine 0.5 L Glucose 325 H Calcium 8.2 L 7.9 L GGT 245 H Lactate Dehydrogenase 271 H Total Protein 5.4 L Albumin 2.9 L Urine Protein Urine Glucose (UA) Urine Ketones Urine Occult Blood Urine WBC Hyaline Casts Urine Mucus 11/06/21 11/06/21 11/06/21 12:00 10:03 10:03 RBC 4.24 L Hgb Hct MCV MCH 35.1 H MPV 10.8 H Neut % (Auto) Lymph % (Auto) 14.1 L Lymph # (Auto) 1.24 L [place]cher # (Auto) 0.98 H Absolute Neutrophils Sodium 131 L Potassium Chloride 94 L Carbon Dioxide 19 L Anion Gap 18.0 H Creatinine 0.5 L Glucose 263 H Calcium GGT Lactate Dehydrogenase Total Protein Albumin Urine Protein Trace A Urine Glucose (UA) 250 mg/dl A Urine Ketones >=160 mg/dl A Urine Occult Blood Trace-lysed A Urine WBC 5 H Hyaline Casts 7 H Urine Mucus Mod A Meds: Medications Acetaminophen (Acetaminophen 325 Mg Tablet) 650 mg PO Q6HP PRN; Protocol PRN Reason: Per Pain Protocol/Fever > 101 Acetaminophen (Acetaminophen 500 Mg Tablet) 1,000 mg PO Q8 [place]; Protocol Last Admin: 11/09/21 04:13 Dose: 1,000 mg Documented by: Hydrocodone Bitart/Acetaminophen (Hydrocodone/Apap 7.5/325mg Tablet) 1 tab PO Q4HP PRN; Protocol PRN Reason: Per Pain Protocol Last Admin: 11/07/21 03:57 Dose: 1 tab Documented by: Albuterol/Ipratropium (Ipratropium/Albuterol 3 Ml Ampul.Neb) 3 ml NEB Q4HP PRN PRN Reason: Shortness Of Breath Amlodipine Besylate (Amlodipine 5 Mg Tablet) 5 mg PO DAILY [facility] Aspirin (Aspirin 81 Mg Tab.Chew) 81 mg CHEWED BID [facility] Atorvastatin Calcium (Atorvastatin 10 Mg Tablet) 5 mg PO DAILY [facility] Last Admin: 11/08/21 09:19 Dose: 5 mg Documented by: Dextrose (Dextrose 50% 50 Ml Vial) 0 ml IV UD PRN PRN Reason: Hypoglycemia Diagnostic Test (Pha) (Accu-Chek 1 Each Strip) 1 each FS Q4 [facility] Last Admin: 11/09/21 04:12 Dose: 1 each Documented by: Docusate Sodium (Docusate Sodium 100 Mg Capsule) 100 mg PO BID [facility] Last Admin: 11/08/21 20:16 Dose: 100 mg Documented by: Glucose (Dextrose 31 Gm Oral.Susp) 15 gm PO PRN PRN PRN Reason: Hypoglycemia Potassium Chloride 40 meq/ (Dextrose) 520 mls @ 130 mls/hr IV UD PRN PRN Reason: Potassium < 3 Magnesium Sulfate (Magnesium Sulfate) 2 gm in 50 mls @ 50 mls/hr IV UD PRN PRN Reason: Magnesium </= 1.6 Acetaminophen (Ofirmev) 1,000 mg in 100 mls @ 200 mls/hr IV Q8 [facility]; Protocol Last Admin: 11/09/21 04:14 Dose: Not Given Documented by: Ibuprofen (Ibuprofen 200 Mg Tablet) 200 mg PO DAILYP PRN PRN Reason: Pain Last Admin: 11/07/21 09:30 Dose: 200 mg Documented by: Insulin Glargine (Insulin Glargine, Human 1 Unit/0.01 Ml) 5 unit SQ BID [facility] Last Admin: 11/08/21 20:15 Dose: 5 units Documented by: Insulin Human Lispro (Insulin Lispro 1 Unit/0.01 Ml Unit) 0 unit SQ Q4H [facility]; Protocol Last Admin: 11/09/21 04:12 Dose: 4 units Documented by: Lisinopril (Lisinopril 20 Mg Tablet) 40 mg PO QDAY [facility] Last Admin: 11/08/21 09:20 Dose: 40 mg Documented by: Methocarbamol (Methocarbamol 1,000 Mg/10 Ml Vial) 750 mg IV Q6HP PRN PRN Reason: Muscle Spasm Last Admin: 11/07/21 15:38 Dose: 750 mg Documented by: Methocarbamol (Methocarbamol 750 Mg Tablet) 750 mg PO Q6HP PRN PRN Reason: Muscle Spasm Last Admin: 11/08/21 20:17 Dose: 750 mg Documented by: Ondansetron HCl (Ondansetron 4 Mg/2 Ml Vial) 4 mg IV Q4HP PRN PRN Reason: Nausea And Vomiting Last Admin: 11/08/21 08:25 Dose: 4 mg Documented by: Oxycodone HCl (Oxycodone Hcl 5 Mg Tablet) 5 - 10 mg PO Q4HP PRN; Protocol PRN Reason: Per Pain Protocol Last Admin: 11/09/21 04:13 Dose: 10 mg Documented by: Polyethylene Glycol (Polyethylene Glycol 3350 17 Gm Packet) 17 gm PO DAILYP PRN PRN Reason: Constipation Potassium Chloride (Potassium Chloride 20 Meq Tablet) 40 meq PO UD PRN PRN Reason: Potssium is 3-3.5 Potassium Chloride (Potassium Chloride 20 Meq Tablet) 40 meq PO UD PRN PRN Reason: Potassium < 3 Senna (Sennosides 1 Tablet) 2 tab PO DAILYP PRN PRN Reason: Constipation Sodium Chloride (0.9 % Sodium Chloride 10 Ml Syringe) 10 ml IV Q8 [place] Last Admin: 11/09/21 04:14 Dose: 10 ml Documented by: Throat Lozenges (Benzocaine/Menthol 1 Lozenge) 1 lozenge PO PRN PRN PRN Reason: Sore Throat A/P Assessment and plan (1) Closed fracture of neck of left femur: Assessment and plan: POD 2 s/p left anterior total hip arthroplasty for femoral neck fracture doing ok -PT/OT- WBAT - oral pain medications and diet - stopped lovenox and changed to aspirin secondary to incisional ooze requiring dressing change - prophy: IS, aspirin, foot pumps, mobilization - dispo: likely acute rehab. His physiological age is a bit older than his actual age and resides alone so do think this will be best for him. Status: Acute Time Spent With Patient Time: Total time spent is greater than 50% in coordination of care (as documented) at patient's floor/unit and/or counseling patient:
[2021-11-09] MEDS: DOCUSATE SODIUM 100 MG CAPSULE PO SCH (08:48)
[2021-11-09] MEDS: ATORVASTATIN 10 MG TABLET PO SCH (08:48)
[2021-11-09] MEDS: LISINOPRIL 20 MG TABLET PO SCH (08:49)
[2021-11-09] MEDS: INSULIN GLARGINE, HUMAN 1 UNIT/0.01 ML SQ SCH (09:00)
[2021-11-09] MEDS ORDERED: ASPIRIN 81 MG TAB.CHEW CHEWED SCH (09:00)
[2021-11-09] MEDS ORDERED: amLODIPine 5 MG TABLET PO SCH (09:00)
== END 2021-11-09 13:50 | DRG 522 ==
LOC: ED 08:45 → MEDSUR 12:15
PROVIDERS: ADMIT Internal Medicine; ATTEND Internal Medicine